=== PATIENT | male | born 1975 | race African-American/Black ===

== ENCOUNTER 2017-10-09 13:43 | Inpatient (IN) | payer OTHER ==
--- NOTE | 2017-10-09 14:48 | ED ---
General Adult HPI - General Source: patient, EMS, RN notes reviewed Mode of arrival: EMS Limitations: no limitations <Chad Stockton - Last Filed: 10/09/17 18:07> <Michael Agarwal - Last Filed: 10/09/17 18:29> - General Chief complaint: Psychiatric Symptoms Stated complaint: Mental Health Time Seen by Provider: 10/09/17 14:27 - History of Present Illness Initial comments: Patient's a 42-year-old male being brought in today for psychiatric evaluation by [place] police. Patient mitts he called police because somebody was knocking on his door. He states that he was told some looseness he was TV. Patient denies any thoughts of suicide or homicidal thoughts. Does not that he was drinking earlier today. Please to bring him here to the hospital to have psychiatric evaluation as they state is acting very paranoid sweating and states that he's been hearing voices. Patient denies any other complaints. Denies any cough congestion, chest pain, back pain, abdominal pain, numbness tingling, dysuria or hematuria, headaches, visual changes (Chad Stockton) - Related Data Home Medications Medication Instructions Recorded Confirmed No Known Home Medications [No 10/09/17 10/09/17 Known Home Medications] Allergies Allergy/AdvReac Type Severity Reaction Status Date / Time No Known Allergies Allergy Verified 10/09/17 14:14 Review of Systems ROS Other: All systems not noted in ROS Statement are negative. <Chad Stockton - Last Filed: 10/09/17 18:07> ROS Other: All systems not noted in ROS Statement are negative. <Michael Agarwal - Last Filed: 10/09/17 18:29> ROS Statement: Those systems with pertinent positive or pertinent negative responses have been documented in the HPI. Past Medical History Past Medical History: No Reported History History of Any Multi-Drug Resistant Organisms: None Reported Past Surgical History: No Surgical Hx Reported Past Psychological History: No Psychological Hx Reported Smoking Status: Current every day smoker Past Alcohol Use History: Daily Past Drug Use History: None Reported <Chad Stockton - Last Filed: 10/09/17 18:07> General Exam Limitations: no limitations <Chad Stockton - Last Filed: 10/09/17 18:07> <Michael Agarwal - Last Filed: 10/09/17 18:29> - General Exam Comments Initial Comments: General: The patient is awake and alert, in no distress, and does not appear acutely ill. Eye: Pupils are equal, round and reactive to light, extra-ocular movements are intact. No nystagmus. There is normal conjunctiva bilaterally. No signs of icterus. Ears, nose, mouth and throat: There are moist mucous membranes and no oral lesions. Neck: The neck is supple, there is no tenderness or JVD. No meningismal signs. Cardiovascular: There is a regular rate and rhythm. No murmur, rub or gallop is appreciated. Respiratory: Lungs are clear to auscultation, respirations are non-labored, breath sounds are equal. No wheezes, stridor, rales, or rhonchi. Musculoskeletal: Normal ROM, no tenderness. Strength 5/5. Sensation intact. Pulses equal bilaterally 2+. Neurological: A&O x 3. CN II-XII intact, There are no obvious motor or sensory deficits. Coordination appears grossly intact. Speech is normal. Skin: Skin is warm and dry and no rashes or lesions are noted. Psychiatric: Cooperative, appropriate mood & affect, normal judgment. (Chad Stockton) Course <Chad Stockton - Last Filed: 10/09/17 18:07> <Michael Agarwal - Last Filed: 10/09/17 18:29> Vital Signs 10/09/17 10/09/17 10/09/17 13:49 16:26 16:29 Temperature 100.5 F H 101.5 F H Pulse Rate 120 H 112 H Respiratory 18 18 Rate Blood Pressure 137/93 136/82 O2 Sat by Pulse 97 98 Oximetry - Reevaluation(s) Reevaluation #1: 10/09/17 17:33 Patient has been examined here the emergency room. Mental seeing patient at bedside. Patient denies any suicidal thoughts or plans. Patient have fever at triage 100.5. Was rechecked and increased. Patient given Tylenol here in emergency room. Drug screen is negative. Patient's chest x-ray showed no sign of pneumonia. Patient denies any cough or cold or chills. Patient's labs reviewed does show 14,000 white count. Platelets 80. No old lab values to compare. Patient culture and lactic acid pending at this time. (Chad Stockton) Medical Decision Making - Lab Data Result diagrams: 10/09/17 16:37 10/09/17 16:37 <Chad Stockton - Last Filed: 10/09/17 18:07> - Lab Data Result diagrams: 10/09/17 16:37 10/09/17 16:37 <Michael Agarwal - Last Filed: 10/09/17 18:29> - Medical Decision Making Patient reexamined at [facility] no signs of stress is resting comfortably. Patient has been seen by [facility] here in the emergency room. Patient does have fever and no source at this time. Chest x-ray negative. Patient is a 14,000 white count with a shift. Patient will be admitted to the hospital with consult infectious disease along with psych. Patient will not be started on antibiotics at this time. (Chad Stockton) Patient reevaluated by myself, Dr. Agarwal. Patient resting comfortably in bed and is cooperative at this time. Patient admits to feeling sweaty and hearing like people were running in the hallway. Patient over the door and found nobody there. Patient does admit he question whether or not he could've been hallucinating. Patient also admits to drinking alcohol. Patient states she does frequently drink alcohol. Patient is able to hold a conversation at this point. No meningismus. It is unknown the reason for fever. There is some concern regarding low platelet count. This could be related to chronic alcohol use however the setting of fever is felt santiago to hold patient for repeat testing and further evaluation. Case was discussed in detail with practitioner Mali mcdaniel, who will admit for Dr. Aponte, who admits for Dr. Chan. (Michael Agarwal) - Lab Data Lab Results 10/09/17 10/09/17 10/09/17 Range/Units 14:44 14:44 16:37 WBC 14.2 H (3.8-10.6) k/uL RBC 4.37 (4.30-5.90) m/uL Hgb 14.9 (13.0-17.5) gm/dL Hct 41.6 (39.0-53.0) % MCV 95.2 (80.0-100.0) fL MCH 34.2 (25.0-35.0) pg MCHC 35.9 (31.0-37.0) g/dL RDW 13.1 (11.5-15.5) % Plt Count 80 L (150-450) k/uL Neutrophils % 80 % Lymphocytes % 10 % Monocytes % 5 % Eosinophils % 3 % Basophils % 0 % Neutrophils # 11.4 H (1.3-7.7) k/uL Lymphocytes # 1.4 (1.0-4.8) k/uL Monocytes # 0.8 (0-1.0) k/uL Eosinophils # 0.4 (0-0.7) k/uL Basophils # 0.0 (0-0.2) k/uL Manual Slide Review Performed Basophilic Stippling Present Sodium (137-145) mmol/L Potassium (3.5-5.1) mmol/L Chloride (98-107) mmol/L Carbon Dioxide (22-30) mmol/L Anion Gap mmol/L BUN (9-20) mg/dL Creatinine (0.66-1.25) mg/dL Est GFR (CKD-EPI)AfAm (>60 ml/min/1.73 sqM) Est GFR (CKD-EPI)NonAf (>60 ml/min/1.73 sqM) Glucose (74-99) mg/dL Plasma Lactic Acid Castillo (0.7-2.0) mmol/L Calcium (8.4-10.2) mg/dL Total Bilirubin (0.2-1.3) mg/dL AST (17-59) U/L ALT (21-72) U/L Alkaline Phosphatase (38-126) U/L Total Protein (6.3-8.2) g/dL Albumin (3.5-5.0) g/dL Urine Color Yellow Urine Appearance Clear (Clear) Urine pH 5.5 (5.0-8.0) Ur Specific [place] 1.004 (1.001-1.035) Urine Protein Negative (Negative) Urine Glucose (UA) Negative (Negative) Urine Ketones Negative (Negative) Urine Blood Negative (Negative) Urine Nitrite Negative (Negative) Urine Bilirubin Negative (Negative) Urine Urobilinogen <2.0 (<2.0) mg/dL Ur Leukocyte Esterase Negative (Negative) Urine Opiates Screen Not Detected (NotDetected) Ur Oxycodone Screen Not Detected (NotDetected) Urine Methadone Screen Not Detected (NotDetected) Ur Propoxyphene Screen Not Detected (NotDetected) Ur Barbiturates Screen Not Detected (NotDetected) U Tricyclic Antidepress Not Detected (NotDetected) Ur Phencyclidine Scrn Not Detected (NotDetected) Ur Amphetamines Screen Not Detected (NotDetected) U Methamphetamines Scrn Not Detected (NotDetected) U Benzodiazepines Scrn Not Detected (NotDetected) Urine Cocaine Screen Not Detected (NotDetected) U Marijuana (THC) Screen Not Detected (NotDetected) Influenza Type A RNA (Not Detectd) Influenza Type B (PCR) (Not Detectd) 10/09/17 10/09/17 10/09/17 Range/Units 16:37 17:39 17:39 WBC (3.8-10.6) k/uL RBC (4.30-5.90) m/uL Hgb (13.0-17.5) gm/dL Hct (39.0-53.0) % MCV (80.0-100.0) fL MCH (25.0-35.0) pg MCHC (31.0-37.0) g/dL RDW (11.5-15.5) % Plt Count (150-450) k/uL Neutrophils % % Lymphocytes % % Monocytes % % Eosinophils % % Basophils % % Neutrophils # (1.3-7.7) k/uL Lymphocytes # (1.0-4.8) k/uL Monocytes # (0-1.0) k/uL Eosinophils # (0-0.7) k/uL Basophils # (0-0.2) k/uL Manual Slide Review Basophilic Stippling Sodium 136 L (137-145) mmol/L Potassium 4.0 (3.5-5.1) mmol/L Chloride 98 (98-107) mmol/L Carbon Dioxide 21 L (22-30) mmol/L Anion Gap 17 mmol/L BUN 5 L (9-20) mg/dL Creatinine 0.82 (0.66-1.25) mg/dL Est GFR (CKD-EPI)AfAm >90 (>60 ml/min/1.73 sqM) Est GFR (CKD-EPI)NonAf >90 (>60 ml/min/1.73 sqM) Glucose 97 (74-99) mg/dL Plasma Lactic Acid Castillo 1.2 (0.7-2.0) mmol/L Calcium 9.3 (8.4-10.2) mg/dL Total Bilirubin 0.8 (0.2-1.3) mg/dL AST 51 (17-59) U/L ALT 44 (21-72) U/L Alkaline Phosphatase 106 (38-126) U/L Total Protein 7.4 (6.3-8.2) g/dL Albumin 4.4 (3.5-5.0) g/dL Urine Color Urine Appearance (Clear) Urine pH (5.0-8.0) Ur Specific [place] (1.001-1.035) Urine Protein (Negative) Urine Glucose (UA) (Negative) Urine Ketones (Negative) Urine Blood (Negative) Urine Nitrite (Negative) Urine Bilirubin (Negative) Urine Urobilinogen (<2.0) mg/dL Ur Leukocyte Esterase (Negative) Urine Opiates Screen (NotDetected) Ur Oxycodone Screen (NotDetected) Urine Methadone Screen (NotDetected) Ur Propoxyphene Screen (NotDetected) Ur Barbiturates Screen (NotDetected) U Tricyclic Antidepress (NotDetected) Ur Phencyclidine Scrn (NotDetected) Ur Amphetamines Screen (NotDetected) U Methamphetamines Scrn (NotDetected) U Benzodiazepines Scrn (NotDetected) Urine Cocaine Screen (NotDetected) U Marijuana (THC) Screen (NotDetected) Influenza Type A RNA Not Detected (Not Detectd) Influenza Type B (PCR) Not Detected (Not Detectd) Disposition Is patient prescribed a controlled substance at d/c from ED?: No Time of Disposition: 18:12 <Chad Stockton - Last Filed: 10/09/17 18:07> <Michael Agarwal - Last Filed: 10/09/17 18:29> Clinical Impression: Fever, Leukocytosis, Acute psychosis Disposition: ADMITTED IP TO THIS HOSP Condition: Stable Referrals: Germaine Briggs MD [Primary Care Provider] - 1-2 days
[2017-10-09 15:01] LABS: Amphetamine Screen,Urine Not Detected (NotDetected); Barbiturate Screen,Urine Not Detected (NotDetected); Benzodiazepines Screen,Urine Not Detected (NotDetected); Cocaine Screen,Urine Not Detected (NotDetected); Methadone Screen, Urine Not Detected (NotDetected); Opiate Screen,Urine Not Detected (NotDetected); Oxycodone Screen, Urine Not Detected (NotDetected); Phencyclidine Screen,Urine Not Detected (NotDetected); Tricyclic Antidepressant,Urine Not Detected (NotDetected); Urn Cannabinoid Scrn Not Detected (NotDetected)
[2017-10-09] MEDS ORDERED: SODIUM CHLORIDE 0.9% 1,000 ML IV STA (16:27)
[2017-10-09] MEDS ORDERED: ACETAMINOPHEN TAB 500 MG TAB PO STA (16:27)
[2017-10-09 16:51] LABS: Basophils % (A) 0 %; Eosinophils # (A) 0.4 k/uL (0-0.7); Eosinophils % (A) 3 %; HCT 41.6 % (39.0-53.0); HGB 14.9 gm/dL (13.0-17.5); Lymphocytes # (A) 1.4 k/uL (1.0-4.8); Lymphocytes % (A) 10 %; MCH 34.2 pg (25.0-35.0); MCHC 35.9 g/dL (31.0-37.0); MCV 95.2 fL (80.0-100.0); Mean Platelet Volume 8.6; Monocytes # (A) 0.8 k/uL (0-1.0); Monocytes % (A) 5 %; Neutrophils # (A) 11.4 k/uL (1.3-7.7); Neutrophils % (A) 80 %; RBC 4.37 m/uL (4.30-5.90); RDW 13.1 % (11.5-15.5); WBC 14.2 k/uL (3.8-10.6)
--- NOTE | 2017-10-09 16:56 | XR ---
EXAMINATION TYPE: XR chest 1V portable DATE OF EXAM: 10/09/2017 Comparison: None Clinical History: 42-year-old male fever Findings: Lordotic positioning. The cardiomediastinal silhouette, aorta, and pulmonary vasculature are within normal limits. Lungs and pleural spaces are clear. Impression: No acute cardiopulmonary process.
[2017-10-09 17:06] LABS: ALT 44 U/L (21-72); AST 51 U/L (17-59); Albumin 4.4 g/dL (3.5-5.0); Alkaline Phosphatase 106 U/L (38-126); Anion Gap 17 mmol/L; Blood Urea Nitrogen 5 mg/dL (9-20); Calcium 9.3 mg/dL (8.4-10.2); Carbon Dioxide 21 mmol/L (22-30); Chloride 98 mmol/L (98-107); Glucose 97 mg/dL (74-99); Sodium 136 mmol/L (137-145); Total Bilirubin 0.8 mg/dL (0.2-1.3); Total Protein 7.4 g/dL (6.3-8.2)
[2017-10-09 17:07] LABS: Basophilic Stippling Present
[2017-10-09 17:10] LABS: Platelet Count 80 k/uL (150-450)
[2017-10-09 17:36] LABS: Appearance,Urine Clear (Clear); Bilirubin,Urine Negative (Negative); Blood,Urine Negative (Negative); Color,Urine Yellow; Glucose,Urine (UA) Negative (Negative); Ketones,Urine Negative (Negative); Leukocyte Esterase,Urine Negative (Negative); Nitrite,Urine Negative (Negative); PH, Urine 5.5 (5.0-8.0); Protein,Urine Negative (Negative); Specific Gravity,Urine 1.004 (1.001-1.035); Urobilinogen,Urine <2.0 mg/dL (<2.0)
[2017-10-09] MEDS ORDERED: ONDANSETRON 4 MG/2 ML VIAL IVP PRN (18:14)
[2017-10-09] MEDS ORDERED: SODIUM CHLORIDE 0.9% 1,000 ML IV ONE (18:14)
[2017-10-09] MEDS ORDERED: NALOXONE 0.4 MG/ML 1 ML VIAL IV PRN (18:14)
[2017-10-09] MEDS ORDERED: LORazepam 2 MG/ML INJ IV PRN ×3 (18:49)
[2017-10-09] MEDS: THIAMINE 100 MG TAB PO SCH (22:54)
[2017-10-10 07:30] LABS: Basophils % (A) 0 %; Eosinophils # (A) 0.2 k/uL (0-0.7); Eosinophils % (A) 3 %; HCT 40.3 % (39.0-53.0); HGB 13.7 gm/dL (13.0-17.5); Lymphocytes # (A) 1.7 k/uL (1.0-4.8); Lymphocytes % (A) 22 %; MCH 32.4 pg (25.0-35.0); MCHC 33.9 g/dL (31.0-37.0); MCV 95.6 fL (80.0-100.0); Mean Platelet Volume 8.8; Monocytes # (A) 0.8 k/uL (0-1.0); Monocytes % (A) 10 %; Neutrophils # (A) 4.9 k/uL (1.3-7.7); Neutrophils % (A) 63 %; RBC 4.22 m/uL (4.30-5.90); RDW 13.1 % (11.5-15.5); WBC 7.8 k/uL (3.8-10.6)
[2017-10-10 07:39] LABS: Platelet Count 93 k/uL (150-450)
[2017-10-10 07:45] LABS: ALT 37 U/L (21-72); AST 44 U/L (17-59); Albumin 3.7 g/dL (3.5-5.0); Alkaline Phosphatase 103 U/L (38-126); Anion Gap 9 mmol/L; Blood Urea Nitrogen 8 mg/dL (9-20); Carbon Dioxide 27 mmol/L (22-30); Chloride 102 mmol/L (98-107); Glucose 88 mg/dL (74-99); Potassium 3.9 mmol/L (3.5-5.1); Sodium 138 mmol/L (137-145); Total Protein 6.6 g/dL (6.3-8.2)
--- NOTE | 2017-10-10 10:54 | P.CONS ---
History of Present Illness - Reason for Consult Consult date: 10/10/17 fever - History of Present Illness This is a 42-year-old -[place] male who gives history that he was hearing somebody knocking on his door and when he went to the door no one was there. This happened repeatedly. He also stated that he heard a baby crying and this has been going on for 1 weeks. Patient has no history of previous hallucinations. He denies any psychiatric problems in the past. He denies taking any medications. He states he has also had some shortness of breath for a week with a cough with phlegm production. No nausea or vomiting. He has had diarrhea 3 episodes per day for the past 3 days. He states it's watery in consistency. He denies any blood in his stool. He has had decreased appetite for the past 2 weeks and has lost 10 pounds. Patient complains of some lightheadedness but has not had no syncopal episodes. Patient states that the police told him that he was sweating but he does not recall having fever or chills. Patient was brought in by [facility] for evaluation for hallucinations. He was found to have a temperature 101.5 and tachycardia of 120. His pulse ox was 97% on room air. Initial white count 14.2 and repeat 7.8. He also had low platelet count of 80 and repeat was 93. Patient denies any known history of low platelet count. His BUN was 8 and creatinine 0.8. Liver function tests were within normal limits. Urinalysis was negative for any infection. Urine drug screen was negative and influenza testing was negative. Blood culture was obtained. He had a chest x-ray that showed no acute cardio pulmonary process. Patient was [facility] floor. Antibiotics have not been started as a source of fevers not been identified. There is a consult in for psychiatry. Patient does give history that he is drinking 30 pack of beer at least 1 day per week and a fifth of alcohol 1 day a week plus he drinks more on the weekends with his friends. He denies any street drug use or marijuana use. He is currently smoking 2 packs per day of cigarettes. 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 Patient can't recall the last evening he was telling the nurses that there was a cat in the hallway. He states he feels like he has a fever again as he is getting sweaty. This morning he ate about half of his breakfast. Review of Systems Constitutional: Reports poor appetite, Reports sweats, Reports weight loss, Denies chills, Denies fever Ears, nose, mouth and throat: Denies dental pain, Denies mouth pain, Denies vertigo Cardiovascular: Reports lightheadedness, Reports shortness of breath, Denies decreased exercise tolerance, Denies dyspnea on exertion, Denies edema, Denies leg edema, Denies syncope Respiratory: Reports cough, Reports cough with sputum, Denies congestion, Denies dyspnea, Denies excessive sputum, Denies hemoptysis, Denies home oxygen, Denies wheezing Gastrointestinal: Reports diarrhea, Reports loss of appetite, Denies abdominal pain, Denies melena, Denies nausea, Denies vomiting Genitourinary: Denies dysuria, Denies urinary frequency Musculoskeletal: Denies frequent falls Integumentary: Denies pruritus, Denies rash, Denies wounds Psychiatric: Reports hallucinations, Denies suicidal ideation Past Medical History Past Medical History: No Reported History Additional Past Medical History / Comment(s): migraines History of Any Multi-Drug Resistant Organisms: None Reported Past Surgical History: No Surgical Hx Reported Additional Past Surgical History / Comment(s): pt stated never had any sx Past Anesthesia/Blood Transfusion Reactions: No Reported Reaction Smoking Status: Current every day smoker Additional Past Alcohol Use History / Comment(s): Patient is a smoker of 2 packs per day since he was 13 years old. He states he drinks 30 pack of beer one day per week and a fifth one day per week plus he drinks more on the weekends with his friends. He denies any marijuana or street drug use. 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 He lives at home with his . He does state his has a boyfriend. - Past Family History Father History Unknown: Yes Mother History Unknown: Yes Medications and Allergies Home Medications Medication Instructions Recorded Confirmed Type No Known Home Medications [No 10/09/17 10/09/17 History Known Home Medications] Allergies Allergy/AdvReac Type Severity Reaction Status Date / Time No Known Allergies Allergy Verified 10/09/17 14:14 Physical Exam Vitals: Vital Signs Temp Pulse Pulse Pulse Resp BP BP 10/10/17 07:25 98.6 F 95 20 140/83 10/09/17 22:05 98.1 F 05/15/18 21:30 18 10/09/17 20:13 98.3 F 106 H 18 159/95 10/09/17 19:55 98.3 F 106 H 18 159/95 10/09/17 19:35 101 F H 101 H 18 145/84 10/09/17 18:59 101.4 F H 99 18 155/62 10/09/17 16:29 112 H 18 136/82 10/09/17 16:26 101.5 F H 10/09/17 13:49 100.5 F H 120 H 18 137/93 Pulse Ox 10/10/17 07:25 98 10/09/17 22:05 10/09/17 21:30 10/09/17 20:13 98 10/09/17 19:55 98 10/09/17 19:35 100 10/09/17 18:59 100 10/09/17 16:29 98 10/09/17 16:26 10/09/17 13:49 97 Intake and Output 10/09/17 10/10/17 10/10/17 22:59 06:59 14:59 Intake Total 590 Balance 590 Intake: Oral 590 Other: # Voids 2 2 # Bowel Movements 1 Gen: This is a 42-year-old -[place] male. He is ambulatory in the room and appears to be stable. He is in no acute distress. HEENT: Head is atraumatic, normocephalic. Pupils equal, round. Sclerae is anicteric. Conjunctiva pink. Mucous members of the mouth are moist. Dentition is very poor order. Patient is known to have diaphoresis on his forehead. NECK: Supple. No JVD. No lymphadenopathy. No thyromegaly. LUNGS: Clear to auscultation. No wheezes or rhonchi. No intercostal retractions. HEART: Regular rate and rhythm. No murmur. ABDOMEN: Soft. Bowel sounds are present. No masses. No tenderness. EXTREMITIES: No pedal edema. No calf tenderness. Dorsalis pedis +2 bilaterally. NEUROLOGICAL: Patient is awake, alert and oriented x3. Cranial nerves 2 through 12 are grossly intact. Patient is able to answer questions appropriately and he is able to recall the hallucinations that he has he appears to understand that these are not normal or real. Patient is able to maintain good eye contact. Results Results: Laboratory Results WBC 7.8 k/uL (3.8-10.6) 10/10/17 06:52 RBC 4.22 m/uL (4.30-5.90) L 10/10/17 06:52 Hgb 13.7 gm/dL (13.0-17.5) 10/10/17 06:52 Hct 40.3 % (39.0-53.0) 10/10/17 06:52 MCV 95.6 fL (80.0-100.0) 10/10/17 06:52 MCH 32.4 pg (25.0-35.0) 10/10/17 06:52 MCHC 33.9 g/dL (31.0-37.0) 10/10/17 06:52 RDW 13.1 % (11.5-15.5) 10/10/17 06:52 Plt Count 93 k/uL (150-450) L 10/10/17 06:52 Neutrophils % 63 % 10/10/17 06:52 Lymphocytes % 22 % 10/10/17 06:52 Monocytes % 10 % 10/10/17 06:52 Eosinophils % 3 % 10/10/17 06:52 Basophils % 0 % 10/10/17 06:52 Neutrophils # 4.9 k/uL (1.3-7.7) 10/10/17 06:52 Lymphocytes # 1.7 k/uL (1.0-4.8) 10/10/17 06:52 Monocytes # 0.8 k/uL (0-1.0) 10/10/17 06:52 Eosinophils # 0.2 k/uL (0-0.7) 10/10/17 06:52 Basophils # 0.0 k/uL (0-0.2) 10/10/17 06:52 Manual Slide Review Performed 10/09/17 16:37 Basophilic Stippling Present 10/09/17 16:37 Sodium 138 mmol/L (137-145) 10/10/17 06:52 Potassium 3.9 mmol/L (3.5-5.1) 10/10/17 06:52 Chloride 102 mmol/L (98-107) 10/10/17 06:52 Carbon Dioxide 27 mmol/L (22-30) 10/10/17 06:52 Anion Gap 9 mmol/L 10/10/17 06:52 BUN 8 mg/dL (9-20) L 10/10/17 06:52 Creatinine 0.80 mg/dL (0.66-1.25) 10/10/17 06:52 Est GFR (CKD-EPI)AfAm >90 (>60 ml/min/1.73 sqM) 10/10/17 06:52 Est GFR (CKD-EPI)NonAf >90 (>60 ml/min/1.73 sqM) 10/10/17 06:52 Glucose 88 mg/dL (74-99) 10/10/17 06:52 Plasma Lactic Acid Castillo 1.2 mmol/L (0.7-2.0) 10/09/17 17:39 Calcium 9.0 mg/dL (8.4-10.2) 10/10/17 06:52 Total Bilirubin 1.0 mg/dL (0.2-1.3) 10/10/17 06:52 AST 44 U/L (17-59) 10/10/17 06:52 ALT 37 U/L (21-72) 10/10/17 06:52 Alkaline Phosphatase 103 U/L (38-126) 10/10/17 06:52 Total Protein 6.6 g/dL (6.3-8.2) 10/10/17 06:52 Albumin 3.7 g/dL (3.5-5.0) 10/10/17 06:52 Urine Color Yellow 10/09/17 14:44 Urine Appearance Clear (Clear) 10/09/17 14:44 Urine pH 5.5 (5.0-8.0) 10/09/17 14:44 Ur Specific [place] 1.004 (1.001-1.035) 10/09/17 14:44 Urine Protein Negative (Negative) 10/09/17 14:44 Urine Glucose (UA) Negative (Negative) 10/09/17 14:44 Urine Ketones Negative (Negative) 10/09/17 14:44 Urine Blood Negative (Negative) 10/09/17 14:44 Urine Nitrite Negative (Negative) 10/09/17 14:44 Urine Bilirubin Negative (Negative) 10/09/17 14:44 Urine Urobilinogen <2.0 mg/dL (<2.0) 10/09/17 14:44 Ur Leukocyte Esterase Negative (Negative) 10/09/17 14:44 Urine Opiates Screen Not Detected (NotDetected) 10/09/17 14:44 Ur Oxycodone Screen Not Detected (NotDetected) 10/09/17 14:44 Urine Methadone Screen Not Detected (NotDetected) 10/09/17 14:44 Ur Propoxyphene Screen Not Detected (NotDetected) 10/09/17 14:44 Ur Barbiturates Screen Not Detected (NotDetected) 10/09/17 14:44 U Tricyclic Antidepress Not Detected (NotDetected) 10/09/17 14:44 Ur Phencyclidine Scrn Not Detected (NotDetected) 10/09/17 14:44 Ur Amphetamines Screen Not Detected (NotDetected) 10/09/17 14:44 U Methamphetamines Scrn Not Detected (NotDetected) 10/09/17 14:44 U Benzodiazepines Scrn Not Detected (NotDetected) 10/09/17 14:44 Urine Cocaine Screen Not Detected (NotDetected) 10/09/17 14:44 U Marijuana (THC) Screen Not Detected (NotDetected) 10/09/17 14:44 Influenza Type A RNA Not Detected (Not Detectd) 10/09/17 17:39 Influenza Type B (PCR) Not Detected (Not Detectd) 10/09/17 17:39 CBC & Chem 7: 10/10/17 10:37 10/10/17 06:52 Labs: Abnormal Lab Results - Last 24 Hours (Table) 10/09/17 10/09/17 10/10/17 Range/Units 16:37 16:37 06:52 WBC 14.2 H (3.8-10.6) k/uL RBC 4.22 L (4.30-5.90) m/uL Plt Count 80 L 93 L (150-450) k/uL Neutrophils # 11.4 H (1.3-7.7) k/uL Sodium 136 L (137-145) mmol/L Carbon Dioxide 21 L (22-30) mmol/L BUN 5 L (9-20) mg/dL 10/10/17 Range/Units 06:52 WBC (3.8-10.6) k/uL RBC (4.30-5.90) m/uL Plt Count (150-450) k/uL Neutrophils # (1.3-7.7) k/uL Sodium (137-145) mmol/L Carbon Dioxide (22-30) mmol/L BUN 8 L (9-20) mg/dL Microbiology - Last 24 Hours (Table) 10/09/17 14:44 Urine Culture - Preliminary Urine,Voided Assessment and Plan Plan: This is a 42-year-old -[place] male who presented to hospital with signs of SIRS with fever, tachycardia and leukocytosis. No source of infection is noted. Pro-calcitonin and hepatitis panel have been ordered. Patient also presents with thrombocytopenia which he denies any known history. A psychiatry evaluation to be performed as patient presented with hallucinations and that was reason for his presentation. He also has alcohol abuse syndrome but does not appear to be going through withdrawals at this time. He is on CIWA protocol. Await results of pro-calcitonin for further recommendations Continue supportive care. Further recommendations as patient progresses. The above dictated assessment and findings were discussed with Dr. Majano. The impression and plan of care have been directed as dictated. Catrina Albarado nurse practitioner acting as scribe for Dr. Majano.
[2017-10-10 11:33] LABS: Mean Platelet Volume 7.9; Platelet Count 85 k/uL (150-450)
[2017-10-10 11:58] LABS: Prothrombin Time 9.9 sec (9.0-12.0)
[2017-10-10] MEDS: SODIUM CHLORIDE 0.9% 1,000 ML IV SCH ×2 (12:24→21:35)
[2017-10-10] MEDS: THIAMINE 100 MG TAB PO SCH ×2 (12:24→19:38)
--- NOTE | 2017-10-10 12:42 | P.HPIM ---
History of Present Illness Patient's a 42-year-old male being brought in today for psychiatric evaluation by [facility] [employer]. Patient mitts he called police because somebody was knocking on his door. He states that he was told some looseness he was TV. Patient basically presented with the sudden onset of auditory hallucinations. Patient did have fever leukocytosis upon admission. Patient denied any photophobia headache patient does have history of migraine occasionally have this migraine headaches. Patient denied any recent exposure to sick contacts he claims that he has upper respiratory infection and had a recent ER visit although I do not see any year note. Patient is alert oriented 3 is having significant auditory hallucinations as an have any visual or tactile hallucinations. Patient denied any photophobia local rigidity denied any back pain neck pain. Patient denied going out of [place] on where he lives recently. Patient denied any history of sexually transmitted diseases. Denied any history of herpes simplex infection in the past Denies any cough congestion , chest pain, back pain, abdominal pain, numbness tingling, dysuria or hematuria , headaches, visual changes Review of Systems REVIEW OF SYSTEMS: CONSTITUTIONAL: No fever, no malaise, no fatigue. HEENT: No recent visual problems or hearing problems. Denied any sore throat. CARDIOVASCULAR: No chest pain, orthopnea, PND, no palpitations, no syncope. PULMONARY: No shortness of breath, no cough, no hemoptysis. GASTROINTESTINAL: No diarrhea, no nausea, no vomiting, no abdominal pain. Normoactive bowel sounds. NEUROLOGICAL: No headaches, no weakness, no numbness. HEMATOLOGICAL: Denies any bleeding or petechiae. GENITOURINARY: Denies any burning micturition, frequency, or urgency. MUSCULOSKELETAL/RHEUMATOLOGICAL: Denies any joint pain, swelling, or any muscle pain. ENDOCRINE: Denies any polyuria or polydipsia. The rest of the 14-point review of systems is negative. Past Medical History Past Medical History: No Reported History Additional Past Medical History / Comment(s): migraines History of Any Multi-Drug Resistant Organisms: None Reported Past Surgical History: No Surgical Hx Reported Additional Past Surgical History / Comment(s): pt stated never had any sx Past Anesthesia/Blood Transfusion Reactions: No Reported Reaction Smoking Status: Current every day smoker - Past Family History Father History Unknown: Yes Mother History Unknown: Yes Medications and Allergies Home Medications Medication Instructions Recorded Confirmed Type No Known Home Medications [No 10/09/17 10/09/17 History Known Home Medications] Allergies Allergy/AdvReac Type Severity Reaction Status Date / Time No Known Allergies Allergy Verified 10/09/17 14:14 Physical Exam Vitals: Vital Signs Temp Pulse Pulse Pulse Resp BP BP 10/10/17 07:25 98.6 F 95 20 140/83 10/09/17 22:05 98.1 F 10/09/17 21:30 18 10/09/17 20:13 98.3 F 106 H 18 159/95 10/09/17 19:55 98.3 F 106 H 18 159/95 10/09/17 19:35 101 F H 101 H 18 145/84 10/09/17 18:59 101.4 F H 99 18 155/62 10/09/17 16:29 112 H 18 136/82 10/09/17 16:26 101.5 F H 10/09/17 13:49 100.5 F H 120 H 18 137/93 Pulse Ox 10/10/17 07:25 98 10/09/17 22:05 10/09/17 21:30 10/09/17 20:13 98 10/09/17 19:55 98 10/09/17 19:35 100 10/09/17 18:59 100 10/09/17 16:29 98 10/09/17 16:26 10/09/17 13:49 97 Intake and Output 10/09/17 10/10/17 10/10/17 22:59 06:59 14:59 Intake Total 590 Balance 590 Intake: Oral 590 Other: # Voids 2 2 # Bowel Movements 1 PHYSICAL EXAMINATION: GENERAL: The patient is alert and oriented x3, not in any acute distress. Well developed, well nourished. HEENT: Pupils are round and equally reacting to light. EOMI. No scleral icterus. No conjunctival pallor. Normocephalic, atraumatic. No pharyngeal erythema. No thyromegaly. CARDIOVASCULAR: S1 and S2 present. No murmurs, rubs, or gallops. PULMONARY: Chest is clear to auscultation, no wheezing or crackles. ABDOMEN: Soft, nontender, nondistended, normoactive bowel sounds. No palpable organomegaly. MUSCULOSKELETAL: No joint swelling or deformity. EXTREMITIES: No cyanosis, clubbing, or pedal edema. NEUROLOGICAL: Gross neurological examination did not reveal any focal deficits. No photophobia no neck rigidity no nuchal rigidity Kernig's& Brudzinski sign are negative SKIN: No rashes. Results CBC & Chem 7: 10/10/17 10:37 10/10/17 06:52 Labs: Abnormal Lab Results - Last 24 Hours (Table) 10/09/17 10/09/17 10/10/17 Range/Units 16:37 16:37 06:52 WBC 14.2 H (3.8-10.6) k/uL RBC 4.22 L (4.30-5.90) m/uL Plt Count 80 L 93 L (150-450) k/uL Neutrophils # 11.4 H (1.3-7.7) k/uL Sodium 136 L (137-145) mmol/L Carbon Dioxide 21 L (22-30) mmol/L BUN 5 L (9-20) mg/dL 10/10/17 Range/Units 06:52 WBC (3.8-10.6) k/uL RBC (4.30-5.90) m/uL Plt Count (150-450) k/uL Neutrophils # (1.3-7.7) k/uL Sodium (137-145) mmol/L Carbon Dioxide (22-30) mmol/L BUN 8 L (9-20) mg/dL Microbiology - Last 24 Hours (Table) 10/09/17 14:44 Urine Culture - Preliminary Urine,Voided Thrombosis Risk Factor Assmnt - Choose All That Apply Any of the Below Risk Factors Present?: Yes Each Factor Represents 1 point: Age 41-60 years Other Risk Factors: No Other congenital or acquired thrombophilia - If yes, enter type in comment: No Thrombosis Risk Factor Assessment Total Risk Factor Score: 1 Thrombosis Risk Factor Assessment Level: Low Risk Assessment and Plan Plan: Auditory hallucinations with fever and leukocytosis: Encephalitis is definitely a consideration LP was ordered. No other source of infection was appreciated here. Pro-calcitonin level and hepatitis panel was ordered by infectious disease. We'll obtain CSF opening pressure, CSF HSV PCR, cytology protein, microbiology, LDH. West Nile serology will be obtained as well. CSF comprehensive viral testing. -Sepsis source is unclear possibility of encephalitis -History of migraine
[2017-10-10 13:04] LABS: Hepatitis A Antibody IgM Non-Reactive (Non-Reactive); Hepatitis B Core IgM Non-Reactive (Non-Reactive)
[2017-10-10] MEDS ORDERED: RX INFO: IV CONTRAST WAS GIVEN 1 EACH MISC MISCELLANE PRN (13:06)
--- NOTE | 2017-10-10 13:39 | P.HP ---
Psychiatric H&P - . H&P Date: 10/10/17 History & Physical: Allergies Allergy/AdvReac Type Severity Reaction Status Date / Time No Known Allergies Allergy Verified 10/09/17 14:14 Vital Signs Temp 98.6 F 10/10/17 07:25 Pulse 95 10/10/17 07:25 Resp 20 10/10/17 07:25 BP 140/83 10/10/17 07:25 Pulse Ox 98 10/10/17 07:25 Intake & Output 10/09/17 10/10/17 10/10/17 18:59 06:59 18:59 Intake Total 590 Balance 590 Weight 81.647 kg Intake: Oral 590 Other: # Voids 2 # Bowel Movements 1 Laboratory Last Values WBC 7.8 k/uL (3.8-10.6) 10/10/17 06:52 RBC 4.22 m/uL (4.30-5.90) L 10/10/17 06:52 Hgb 13.7 gm/dL (13.0-17.5) 10/10/17 06:52 Hct 40.3 % (39.0-53.0) 10/10/17 06:52 MCV 95.6 fL (80.0-100.0) 10/10/17 06:52 MCH 32.4 pg (25.0-35.0) 10/10/17 06:52 MCHC 33.9 g/dL (31.0-37.0) 10/10/17 06:52 RDW 13.1 % (11.5-15.5) 10/10/17 06:52 Plt Count 85 k/uL (150-450) L 10/10/17 10:37 Neutrophils % 63 % 10/10/17 06:52 Lymphocytes % 22 % 10/10/17 06:52 Monocytes % 10 % 10/10/17 06:52 Eosinophils % 3 % 10/10/17 06:52 Basophils % 0 % 10/10/17 06:52 Neutrophils # 4.9 k/uL (1.3-7.7) 10/10/17 06:52 Lymphocytes # 1.7 k/uL (1.0-4.8) 10/10/17 06:52 Monocytes # 0.8 k/uL (0-1.0) 10/10/17 06:52 Eosinophils # 0.2 k/uL (0-0.7) 10/10/17 06:52 Basophils # 0.0 k/uL (0-0.2) 10/10/17 06:52 Manual Slide Review Performed 10/09/17 16:37 Basophilic Stippling Present 10/09/17 16:37 PT 9.9 sec (9.0-12.0) 10/10/17 10:37 INR 1.0 (<1.2) 10/10/17 10:37 Sodium 138 mmol/L (137-145) 10/10/17 06:52 Potassium 3.9 mmol/L (3.5-5.1) 10/10/17 06:52 Chloride 102 mmol/L (98-107) 10/10/17 06:52 Carbon Dioxide 27 mmol/L (22-30) 10/10/17 06:52 Anion Gap 9 mmol/L 10/10/17 06:52 BUN 8 mg/dL (9-20) L 10/10/17 06:52 Creatinine 0.80 mg/dL (0.66-1.25) 10/10/17 06:52 Est GFR (CKD-EPI)AfAm >90 (>60 ml/min/1.73 sqM) 10/10/17 06:52 Est GFR (CKD-EPI)NonAf >90 (>60 ml/min/1.73 sqM) 10/10/17 06:52 Glucose 88 mg/dL (74-99) 10/10/17 06:52 Plasma Lactic Acid Castillo 1.2 mmol/L (0.7-2.0) 10/09/17 17:39 Calcium 9.0 mg/dL (8.4-10.2) 10/10/17 06:52 Total Bilirubin 1.0 mg/dL (0.2-1.3) 10/10/17 06:52 AST 44 U/L (17-59) 10/10/17 06:52 ALT 37 U/L (21-72) 10/10/17 06:52 Alkaline Phosphatase 103 U/L (38-126) 10/10/17 06:52 Total Protein 6.6 g/dL (6.3-8.2) 10/10/17 06:52 Albumin 3.7 g/dL (3.5-5.0) 10/10/17 06:52 Urine Color Yellow 10/09/17 14:44 Urine Appearance Clear (Clear) 10/09/17 14:44 Urine pH 5.5 (5.0-8.0) 10/09/17 14:44 Ur Specific [place] 1.004 (1.001-1.035) 10/09/17 14:44 Urine Protein Negative (Negative) 10/09/17 14:44 Urine Glucose (UA) Negative (Negative) 10/09/17 14:44 Urine Ketones Negative (Negative) 10/09/17 14:44 Urine Blood Negative (Negative) 10/09/17 14:44 Urine Nitrite Negative (Negative) 10/09/17 14:44 Urine Bilirubin Negative (Negative) 10/09/17 14:44 Urine Urobilinogen <2.0 mg/dL (<2.0) 10/09/17 14:44 Ur Leukocyte Esterase Negative (Negative) 10/09/17 14:44 Urine Opiates Screen Not Detected (NotDetected) 10/09/17 14:44 Ur Oxycodone Screen Not Detected (NotDetected) 10/09/17 14:44 Urine Methadone Screen Not Detected (NotDetected) 10/09/17 14:44 Ur Propoxyphene Screen Not Detected (NotDetected) 10/09/17 14:44 Ur Barbiturates Screen Not Detected (NotDetected) 10/09/17 14:44 U Tricyclic Antidepress Not Detected (NotDetected) 10/09/17 14:44 Ur Phencyclidine Scrn Not Detected (NotDetected) 10/09/17 14:44 Ur Amphetamines Screen Not Detected (NotDetected) 10/09/17 14:44 U Methamphetamines Scrn Not Detected (NotDetected) 10/09/17 14:44 U Benzodiazepines Scrn Not Detected (NotDetected) 10/09/17 14:44 Urine Cocaine Screen Not Detected (NotDetected) 10/09/17 14:44 U Marijuana (THC) Screen Not Detected (NotDetected) 10/09/17 14:44 Influenza Type A RNA Not Detected (Not Detectd) 10/09/17 17:39 Influenza Type B (PCR) Not Detected (Not Detectd) 10/09/17 17:39 10/10/17 13:21 Patient was seen for a psych consult regarding acute psychosis. Patient was apparently petitioned and the police stating that he was hearing and seeing things. No reported behavioral problems. Patient said it started about a week ago. He has been hearing the knocks on the door, peon of playing or Meowing. He also sees cats when nothing is there. He denies having had any psychiatric issues in the past. He does not take any psychiatric medication. He said he may drink about 90 beers in a week. He denies abusing drugs. His drug screening is negative. I do not see blood alcohol level report. This is a black male who was seen lying down in his bed. He is polite and cooperative. He does not show any psychomotor agitation or retardation. He is sweating quite profusely on his face including forehead. His speech is spontaneous and goal directed. His mood is anxious and affect is increased in range. He denies suicide and homicide thoughts. He reports of visual and auditory hallucinations. But his auditory with hallucinations are only noises and sounds. Patient feels confused. He is oriented. He is able to name the current president but has difficulty naming the president before Mr. Patrick. He is able to recall 3 out of 3 items after 5 minutes. He is unable to tell me what direction [place] is from [place] or what direction [facility] is from [place]. His insight and judgment appear to be intact. 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 Psychosis because of his psychiatric condition and usually effects the insight. This person appears to have insight which is suggestive of organic causes in addition to the nature of his hallucinations. Probable organic causes include alcohol withdrawal which is unlikely, undetected substance use, possible lesions on his parietal, temporal and occipital lobes which could be tumor or encephalopathy, hypothyroidism, possible infection etc. He had his spinal tap done today and results are pending. Suggestion: Computed tomography scan of the brain with contrast to assess cerebral pathology. TSH, T3/T4 levels.
--- NOTE | 2017-10-10 14:58 | CT ---
EXAMINATION TYPE: CT brain w con DATE OF EXAM: 10/10/2017 COMPARISON: NONE HISTORY: Fever, leukocytosis and psychosis. CT DLP: 1026.6 mGycm Automated Exposure Control for Dose Reduction was Utilized. TECHNIQUE: CT scan of the head is performed with IV contrast.,CT scan of the head is performed withou t and with with IV Contrast, patient injected with 100ml mL of Isovue M300. FINDINGS: Postcontrast images show no suspicious enhancing intraparenchymal mass. Ventricles and robles lci are within normal limits in size. Some pneumocephalus is present likely from recent attempted lum bar puncture. Mild to moderate mucosal thickening bilateral ethmoid sinuses and visualized portion of both maxillary sinuses is seen. Mild mucosal thickening involving anterior aspect bilateral sphenoid sinuses is present. The globes are intact bilaterally. IMPRESSION: No suspicious enhancing intraparenchymal mass.
--- NOTE | 2017-10-10 15:02 | FL ---
EXAMINATION TYPE: FL guided lumbar puncture LP DATE OF EXAM: 10/10/2017 COMPARISON: NONE HISTORY: Hallucinations and fever, possible encephalopathy TECHNIQUE: Fluoroscopic assisted lumbar puncture. FINDINGS: Fluoroscopic guidance was provided during lumbar puncture procedure performed by myself an krys Montaño. A total of 5 minutes 30 seconds of fluoroscopic time was utilized during the procedure and one spot image was saved. Procedure was explained to patient. Benefits, alternatives, and risks were discussed. Informed consen t was obtained. Overlying skin is cleansed with Betadine. Lidocaine is used as anesthetic into the skin and deeper ti ssue. Under fluoroscopic guidance, spinal canal is accessed at L2 and L3 levels. There is poor return of CSF despite patient having symptoms of shock into lower extremities and felt satisfactory positio taylor of spinal needle. After multiple attempts approximately 10 cc of CSF fluid was obtained. Needle was withdrawn. Patient tolerated procedure well without any immediate complication. Patient was taken back to floor in stable condition. The vital signs were monitored before during and after procedure and remained st able. Pressure measurements not taken and are presumed normal with poor CSF return despite multiple attempt s and repositioning. IMPRESSION: As Above.
[2017-10-10 15:51] LABS: Appearance,CSF Blood Tinged; CSF Tube Number 4; Nucleated Cells, CSF 1 u/L (0-5); Red Blood Cell,CSF 379 u/L (0-10)
[2017-10-10 15:52] LABS: Red Blood Cell, CSF Fresh 100 %
[2017-10-10 16:05] LABS: Glucose,CSF 62 mg/dL (40-70); Total Protein,CSF 45 mg/dL (12-60)
--- NOTE | 2017-10-10 21:27 | P.CON ---
Consult Note - . Consult date: 10/10/17 Assessment/Plan:: This is a 42-year-old -[place] male who gives history that he was hearing somebody knocking on his door and when he went to the door no one was there. This happened repeatedly. He also stated that he heard a baby crying and this has been going on for 1 weeks. Patient has no history of previous hallucinations. He denies any psychiatric problems in the past. He denies taking any medications. He states he has also had some shortness of breath for a week with a cough with phlegm production. No nausea or vomiting. He has had diarrhea 3 episodes per day for the past 3 days. He states it's watery in consistency. He denies any blood in his stool. He has had decreased appetite for the past 2 weeks and has lost 10 pounds. Patient complains of some lightheadedness but has not had no syncopal episodes. Patient states that the police told him that he was sweating but he does not recall having fever or chills. Patient was brought in by [facility] for evaluation for hallucinations. He was found to have a temperature 101.5 and tachycardia of 120. His pulse ox was 97% on room air. Initial white count 14.2 and repeat 7.8. He also had low platelet count of 80 and repeat was 93. Patient denies any known history of low platelet count. His BUN was 8 and creatinine 0.8. Liver function tests were within normal limits. Urinalysis was negative for any infection. Urine drug screen was negative and influenza testing was negative. Blood culture was obtained. He had a chest x-ray that showed no acute cardio pulmonary process. Patient was admitted to the [facility] floor. Antibiotics have not been started as a source of fevers not been identified. There is a consult in for psychiatry. Patient does give history that he is drinking 30 pack of beer at least 1 day per week and a fifth of alcohol 1 day a week plus he drinks more on the weekends with his friends. He denies any street drug use or marijuana use. He is currently smoking 2 packs per day of cigarettes. 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 Patient can't recall the last evening he was telling the nurses that there was a cat in the hallway. He states he feels like he has a fever again as he is getting sweaty. This morning he ate about half of his breakfast. Please see the consult note is dictated by nurse practitioner Mrs. Catrina Albarado. As I enter the room the patient wakes up from what appears to be sleeping directly asked me if I can hear the cats. I reassured him that there are no cats. He is easily calm and is able to converse without great difficulties. He is quite aware that he is having hallucinations. He is no longer febrile. Abdomen hallucinations has clear mentation. Computed tomography scan of the brain has been performed without evidence of acute lesions. Lumbar puncture is now also been performed and results are pending. Patient did have a temperature over 101 at admission that is now resolved. Also had a transient leukocytosis up to 14.2 is now normalized at 7.8. Evaluations for meningitis and encephalitis are in progress, however with a normal pro-calcitonin level would make bacterial meningitis distinctly unlikely does not completely rule out the possibility of a viral process. Given the resolution of the patient's fever and leukocytosis and improved mentation, encephalitis also seems to be unlikely at this time. Patient does relate that his has a boyfriend and constantly workup for HIV and syphilis have been initiated also. Of note CSF comes back available at this point in time it was a difficult collection the blood-tinged CSF has a white blood cell count is rare and 79 and WBC count of 1. Glucose is normal at 62 and protein is normal at 45. Gram stain is just become available joint evidence of many red cells few white cells and no bacteria. Patient has been seen by psychiatry is being treated for metabolic abnormalities possibly related to his chronic and significant alcohol use. Is being treated per the [facility] protocol. Evaluation, assessment and plan as dictated by nurse practitioner Mrs. Catrina Albarado.
[2017-10-11] MEDS: ACETAMINOPHEN TAB 325 MG TAB PO PRN ×2 (07:11→18:03)
[2017-10-11] MEDS: SODIUM CHLORIDE 0.9% 1,000 ML IV SCH ×2 (07:19→16:39)
[2017-10-11] MEDS ORDERED: IPRATROPIUM-ALBUTEROL 3 ML NEB INHALATION PRN (08:35)
--- NOTE | 2017-10-11 09:23 | P.CN ---
Psychiatric Consult - . Consult date: 10/11/17 Consult:: 10/11/17 09:17 Patient was seen for a follow-up examination regarding his "psychosis". Today he said he has not been seeing things and only hears noises or words. He said all these things happened when he found out that his for 16 years, was having an affair with another person. Patient was told that his workups lab tests everything did not indicate any organic causes. When I told him that the acute stress like he has been going through sometimes cause the kind of problems he is having, he said he never thought of It like that with a kind of surprised smile on his face. This matter was discussed with his doctor Dr. Aponte and we agreed to try him on Risperdal 1 mg a day.
--- NOTE | 2017-10-11 11:25 | P.PN ---
Subjective 42-year-old admitted for hallucinations patient is being evaluated for encephalopathy because of leukocytosis and fever on admission although CSF and CT of the head are essentially within normal limits now CSF protein WBC and glucose are all within normal limits suspicion for encephalopathy is low. Pending West Nile virus serology. TSH is being obtained. Discussed with psychiatrist, no evidence of alcohol withdrawal, white blood cell count has come down no fevers patient is not on any antibiotics patient may need an MRI neurology will be consulted patient was started on risperidone as per recommendations of psychiatrist. Patient still have hallucinations had them last night, ordered hallucinations. Constitutional: Denied any fatigue denied any fever. Cardio vascular: denied any chest pain, palpitations Gastrointestinal denied any nausea vomiting Pulmonary: Denied any shortness of breath cough Neurologic denied any new focal deficits Objective - Vital Signs Vital signs: Vital Signs Temp 98.1 F 10/11/17 07:35 Pulse 80 10/11/17 07:35 Resp 20 10/11/17 07:35 BP 140/95 10/11/17 07:35 Pulse Ox 99 10/11/17 07:35 Intake & Output 10/10/17 10/11/17 10/11/17 18:59 06:59 18:59 Intake Total 900 Balance 900 Intake: Intake, IV Titration 900 Amount Sodium Chloride 0.9% 1, 900 000 ml @ 100 mls/hr IV . Q10H [facility] Rx#:[id number] Other: Voiding Method Toilet Toilet # Voids 2 1 # Bowel Movements 2 1 - Exam PHYSICAL EXAMINATION: GENERAL: The patient is alert and oriented x3, not in any acute distress. Well developed, well nourished. HEENT: Pupils are round and equally reacting to light. EOMI. No scleral icterus. No conjunctival pallor. Normocephalic, atraumatic. No pharyngeal erythema. No thyromegaly. CARDIOVASCULAR: S1 and S2 present. No murmurs, rubs, or gallops. PULMONARY: Chest is clear to auscultation, no wheezing or crackles. ABDOMEN: Soft, nontender, nondistended, normoactive bowel sounds. No palpable organomegaly. MUSCULOSKELETAL: No joint swelling or deformity. EXTREMITIES: No cyanosis, clubbing, or pedal edema. NEUROLOGICAL: Gross neurological examination did not reveal any focal deficits. SKIN: No rashes. - Labs CBC & Chem 7: 10/10/17 10:37 05/16/18 06:52 Labs: Abnormal Lab Results - Last 24 Hours (Table) 10/10/17 10/10/17 10/10/17 Range/Units 06:52 10:37 14:00 Plt Count 85 L (150-450) k/uL Procalcitonin 0.92 H (0.02-0.09) ng/mL CSF RBC 379 H (0-10) u/L Microbiology - Last 24 Hours (Table) 10/10/17 20:30 Stool for WBCs - Final Stool 10/10/17 14:00 CSF Gram Stain - Preliminary Cerebral Spinal Fluid CSF Culture - Preliminary 10/10/17 20:30 Stool Culture - Preliminary Stool 10/09/17 14:44 Urine Culture - Final Urine,Voided 10/09/17 17:39 Blood Culture - Preliminary Blood No Growth after 24 hours Assessment and Plan Plan: Auditory hallucinations with fever and leukocytosis: Patient has no normal pro calcitonin levels CSF is within normal limits, consult neurology as mentioned above -Systemic inflammatory response source is unclear possibility of encephalitis -Alcohol abuse without any alcohol withdrawal -Multiple psychosocial stressors please refer to psychiatry note for further details, which can precipitate his hallucinations and cause psychiatric issues -History of migraine
[2017-10-11 12:20] LABS: HIV AB P24 Non-Reactive (Non-Reactive); HIV P24 AG Non-Reactive (Non-Reactive)
[2017-10-11] MEDS: THIAMINE 100 MG TAB PO SCH ×2 (12:30→16:43)
[2017-10-11 14:08] LABS: West Nile Virus IgM Antibody 0.02 INDEX (<0.90)
[2017-10-11] MEDS: IBUPROFEN 400 MG TAB PO PRN (16:44)
[2017-10-11] MEDS ORDERED: risperiDONE 1 MG TAB PO SCH (21:00)
--- NOTE | 2017-10-11 22:03 | CONS ---
CONSULTATION DATE OF CONSULTATION: 10/11/2017. CHIEF COMPLAINT: Hallucinations. HISTORY OF PRESENT ILLNESS: Mr. Reyes is a pleasant 42-year-old, male, who is being evaluated by the Neurology service per the request of Dr. Aponte for hallucinations. The patient was brought into [facility] Emergency Room with complaints of visual and auditory hallucinations. He was evaluated by the psychiatric division who stated that the hallucinations are more likely due to organic etiology and not psychiatric reasons. At the time of my evaluation, the patient is lying in his bed and appears to be in no acute distress. He still reports seeing cats and reports hearing sounds like knocking on the door and cat sounds. A CT scan of the brain with contrast was done, which showed no intracranial abnormalities and no abnormal enhancement was seen. His comprehensive metabolic profile was normal. His TSH was normal. His procalcitonin was elevated at 0.92. His CBC showed thrombocytopenia at 85,000. The patient was also complaining of having a fever at home. He was afebrile in the emergency room. A lumbar puncture was done and CSF workup showed no evidence of any intracranial infection. He did have 379 RBCs, but these were all fresh. Viral studies were all normal including HIV, hepatitis panel, West Nile virus, and influenza virus. At the time of my evaluation, he is lying in his bed and appears to be in no acute distress. He denies any changes in his elucidation since his admission. PAST MEDICAL HISTORY: None. PAST SURGICAL HISTORY: None. SOCIAL HISTORY: He does drink alcohol. He denies any drug use. FAMILY HISTORY: Noncontributory. HOME MEDICATIONS: None. ALLERGIES: No known drug allergies. REVIEW OF SYSTEMS: CONSTITUTIONAL: Negative. EYES: Negative. ENT: Negative. CARDIOVASCULAR: Negative. RESPIRATORY: Negative. NEUROLOGICAL: Negative. GASTROINTESTINAL: Negative. GENITOURINARY: Negative. PSYCHIATRIC: As mentioned above. MUSCULOSKELETAL: Negative. ENDOCRINE: Negative. DERMATOLOGICAL: Negative. MUSCULOSKELETAL: Negative. PHYSICAL EXAM: Vital signs show a temperature of 98.1, pulse 88, respiration 20, blood pressure 140/95. GENERAL APPEARANCE: The patient is a well-developed, -[place] male, who appears to be in no acute distress. HEENT: Normocephalic, atraumatic, no facial asymmetry is seen. NECK: Supple with no masses felt. CARDIOVASCULAR: Regular rate and rhythm. ABDOMEN: Nontender, nondistended. Extremities showed no edema or clubbing. NEUROLOGICAL EXAM: The patient is alert aware and oriented x3. Speech and language are normal. Strength is full in all 4 extremities. Sensory exam was normal to light touch in all 4 extremities. No facial asymmetry is seen on cranial nerve testing. No pronator drift is seen. No seizure-like activity is noticed. IMPRESSION: 1. Visual and auditory hallucinations. 2. Altered mental status, resolved. 3. Fever, resolved. 4. Thrombocytopenia. RECOMMENDATION: The patient's neurological examination is normal. He is still having visual and auditory hallucinations, as mentioned above. I will order an MRI of the brain with and without contrast to rule out any intracranial structural abnormalities. Otherwise, I do recommend further psychiatric workup and management. Again, his neurological examination was normal. I did review with him the results of his CT scan of the brain, which was normal and he was reassured from that standpoint. I recommend further workup and management for his significant thrombocytopenia. Continue neuro checks. I will continue to follow with you. Further recommendations to follow. Thank you for allowing me to participate in the care of your patient. If you have any questions, please feel free to contact me. MMODL / IJN: [id number] /
[2017-10-12] MEDS: SODIUM CHLORIDE 0.9% 1,000 ML IV SCH ×2 (05:46→11:42)
[2017-10-12] MEDS: IBUPROFEN 400 MG TAB PO PRN (07:24)
[2017-10-12 08:12] VITALS: BP 148/98; PULSE 71; RESP 20; TEMP 98.4
--- NOTE | 2017-10-12 08:31 | P.CN ---
Psychiatric Consult - . Consult date: 10/12/17 Consult:: 10/12/17 08:24 Patient was seen for a follow-up examination. He said he is feeling better today. He said in the middle of the night he heard somebody talking and found out people were actually talking in the hallway. He said he continues to hear sounds and noises at times. He does not have any other psychiatric complaints. He reports of having some dental pain. He is cheerful and lot more relaxed today. He said his came to visit him yesterday evening and feels better about it. He still hopes to work things out with his to whom he has been for about 16 years. He also admitted that he gets stressed out at times. He is willing to seek some counseling how to handle his stress related problems. He continues to deny suicide and homicide thoughts. He reports of having migraine headaches during which time seeing black spots etc. He is not treated for it. Assessment: Acute stress disorder F 43.0 Migraine headaches. Suggestion: Patient can be discharged home when medically cleared. Consider prophylactic treatment for migraine headaches which excludes Depakote since he has thrombocytopenia. Refer him to [facility] for stress management.
[2017-10-12 08:37] LABS: HCT 36.7 % (39.0-53.0); HGB 12.5 gm/dL (13.0-17.5); MCH 34.1 pg (25.0-35.0); MCV 100.3 fL (80.0-100.0); Macrocytosis Slight; Mean Platelet Volume 7.4; RBC 3.66 m/uL (4.30-5.90); RDW 13.6 % (11.5-15.5); WBC 6.2 k/uL (3.8-10.6)
[2017-10-12 08:46] LABS: Anion Gap 9 mmol/L; Blood Urea Nitrogen 7 mg/dL (9-20); Calcium 8.6 mg/dL (8.4-10.2); Carbon Dioxide 24 mmol/L (22-30); Chloride 108 mmol/L (98-107); Glucose 80 mg/dL (74-99); Potassium 3.5 mmol/L (3.5-5.1); Sodium 141 mmol/L (137-145)
[2017-10-12 08:58] LABS: Platelet Count 165 k/uL (150-450)
--- NOTE | 2017-10-12 10:48 | P.DS ---
Providers Date of admission: 10/11/17 19:53 Attending physician: Nathan Aponte Consults: 10/09/17 18:14 Consult Physician Stat Consulting Provider: Pedro Majano Consult Reason/Comments: Fever Do you want consulting provider notified?: Yes Consult Physician Stat Consulting Provider: Ni Light Consult Reason/Comments: Acute psychosis Do you want consulting provider notified?: Yes 10/11/17 08:33 Consult Physician Routine Consulting Provider: Masoud Ramírez Consult Reason/Comments: Encephalopathy Do you want consulting provider notified?: Yes Primary care physician: Brigitte Pino [facility] Course: 42-year-old admitted for hallucinations patient is being evaluated for encephalopathy because of leukocytosis and fever on admission although CSF and CT of the head are essentially within normal limits now CSF protein WBC and glucose are all within normal limits suspicion for encephalopathy is low. Pending West Nile virus serology. TSH is being obtained. Discussed with psychiatrist, no evidence of alcohol withdrawal, white blood cell count has come down no fevers patient is not on any antibiotics patient may need an MRI neurology will be consulted patient was started on risperidone as per recommendations of psychiatrist. Patient still have hallucinations had them last night, auditory hallucinations. 10/12/2017 All the workup for organic causes of hallucinations is negative patient West Nile serology is negative CSF is essentially within normal limits. TSH is within normal limits we will obtain an MRI, if that is negative patient will be discharged home. Patient may have either schizophrenia or schizoaffective disorder which was precipitated by stress, patient will need to follow up with, and a mental health as an outpatient as recommended by the psychiatric was here and patient will be discharged on risperidone 1 mg at bedtime daily still had hallucinations last night. Patient had may have a dental abscess in the right upper maxillary area which may which may be responsible for his fever and leukocytosis and patient will be discharged on Augmentin and follow with dental surgery as an outpatient. Patient does have thrombocytopenia secondary to alcohol use, patient was asked to quit alcohol and can and thrombocytopenia can be worked up as an outpatient if it doesn't improve after cessation of alcohol. PHYSICAL EXAMINATION: GENERAL: The patient is alert and oriented x3, not in any acute distress. Well developed, well nourished. HEENT: Pupils are round and equally reacting to light. EOMI. No scleral icterus. No conjunctival pallor. Normocephalic, atraumatic. No pharyngeal erythema. No thyromegaly. CARDIOVASCULAR: S1 and S2 present. No murmurs, rubs, or gallops. PULMONARY: Chest is clear to auscultation, no wheezing or crackles. ABDOMEN: Soft, nontender, nondistended, normoactive bowel sounds. No palpable organomegaly. MUSCULOSKELETAL: No joint swelling or deformity. EXTREMITIES: No cyanosis, clubbing, or pedal edema. NEUROLOGICAL: Gross neurological examination did not reveal any focal deficits. SKIN: No rashes. Assessment and Plan Plan: Auditory hallucinations: Etiology as mentioned above -Systemic inflammatory response source is unclear possibility of encephalitis -Alcohol abuse without any alcohol withdrawal -Multiple psychosocial stressors please refer to psychiatry note for further details, which can precipitate his hallucinations and cause psychiatric issues -History of migraine -Possible dental abscess -Thrombocytopenia secondary to alcohol use as mentioned above Patient Condition at Discharge: Stable Plan - Discharge Summary Discharge Rx Participant: No New Discharge Prescriptions: New Amoxic-Pot Clav 875-125Mg [Augmentin 875-125] 1 tab PO Q12HR #14 tablet risperiDONE [RisperDAL] 1 mg PO HS #30 tab Discharge Medication List Amoxic-Pot Clav 875-125Mg [Augmentin 875-125] 1 tab PO Q12HR #14 tablet [Rx] risperiDONE [RisperDAL] 1 mg PO HS #30 tab 10/12/17 [Rx] Follow up Appointment(s)/Referral(s): Germaine Briggs MD [Primary Care Provider] - 3 Days Activity/Diet/Wound Care/Special Instructions: Patient will need to follow with, to mental health Discharge Disposition: HOME SELF-CARE
--- NOTE | 2017-10-12 12:04 | MR ---
EXAMINATION TYPE: MR brain wo/w con DATE OF EXAM: 10/12/2017 COMPARISON: NONE HISTORY: Auditory Hallucinations, AMS TECHNIQUE: Multiplanar, multisequence images of the brain and brainstem is performed without and with IV contras t, utilizing 7.5 mL intravenous Gadavist . FINDINGS: Diffusion weighted images demonstrate no evidence of a recent infarct or other diffusion ab normality. Changes of chronic sinusitis noted with nasal septal deviation. Mastoid air cells have a normal appea neilda. Prominent cisterna magna noted. White matter: There are approximately 30 areas abnormal abnormal signal within the white matter all measuring 5 mm or less. No callosal lesions. No lesions perpendicular to ventricular system. No enhancing lesions. Midline structures demonstrate normal morphology. The craniocervical junction appears within normal limits. Post contrast images demonstrate no abnormal enhancement. The dural venous sinuses appear pa tent. The visualized sinuses are clear and the globes are intact. IMPRESSION: 1. Diffuse nonspecific white matter changes can be seen with hypertension, migraine headaches or demy elinating disease or remote microvascular ischemia correlate clinically. 2. Chronic sinusitis.
[2017-10-12] MEDS: THIAMINE 100 MG TAB PO SCH (13:24)
--- NOTE | 2017-10-12 17:37 | EEG ---
ELECTROENCEPHALOGRAM REPORT DATE OF SERVICE: 10/12/2017 REASON FOR TESTING: Hallucinations. DESCRIPTION OF THE PROCEDURE: This EEG was performed using a 21-channel digital electroencephalograph, following international 10-20 system. DESCRIPTION OF THE RECORDING: From the beginning of the tracing, and with the patient's eyes closed, the background rhythm was mostly consisting of 9 Hz alpha frequency in the posterior occipital leads. No obvious asymmetry is seen. Photic stimulation was performed with a minimal driving response seen. No pathological waves were elicited. Frequent muscle and movement artifacts are seen. Hyperventilation was performed with a minimal buildup of amplitude seen. Again, no pathological waves were elicited. More muscle artifacts are seen later in the tracing. The patient remains awake throughout this tracing. No epileptiform discharges were seen. His EKG lead showed a regular rate and rhythm. INTERPRETATION: This awake EEG can be considered within normal limits. There was no asymmetry seen. No epileptiform discharges were noticed. The absence of epileptiform discharges does not rule out the diagnosis of epilepsy; therefore clinical correlation is recommended. CARLY / FORTUNATON: [id number] /
[2017-10-18 14:51] LABS: Cryptosporidium parvum Not detected (Not detected); Isospora belli Not detected (Not detected); Microsporidium Not detected (Not detected); Routine Ova and Parasites Not detected; White Cells Not detected (Not detected)
== END 2017-10-12 13:25 | disposition home or self-care (01) | DRG 880 ==
LOC: EC 13:43 → 5MS5E 18:29 → OBSVTOIN 10-11 19:53
PROVIDERS: ADMIT Internal Medicine; ATTEND Internal Medicine
PROC: 009U3ZX Drainage of Spinal Canal, Percutaneous Approach, Diagnostic (ICD-10-PCS; principal; 2017-10-10)
DX: F43.0 Acute stress reaction (principal); G04.90 Encephalitis and encephalomyelitis, unspecified; R44.0 Auditory hallucinations; D69.59 Other secondary thrombocytopenia; T51.91XA Toxic effect of unspecified alcohol, accidental (unintentional), initial encounter; K04.7 Periapical abscess without sinus; G43.909 Migraine, unspecified, not intractable, without status migrainosus; F10.10 Alcohol abuse, uncomplicated; F17.210 Nicotine dependence, cigarettes, uncomplicated; Z71.6 Tobacco abuse counseling; Z71.41 Alcohol abuse counseling and surveillance of alcoholic
CPT/HCPCS: 36415; 62270; 70460; 70553; 71045; 80048; 80053; 80074; 80306; 81003; 82075; 82945; 83605; 83615; 84145; 84157; 84443; 85025; 85027; 85049; 85610; 86780; 86788; 86789; 87040; 87045; 87046; 87070; 87086; 87177; 87205; 87207; 87209; 87252; 87324; 87390; 87496; 87498; 87502; 87529; 87798; 89050; 89055; 94640; 95819; 96360; 96361; 99285

== ENCOUNTER 2017-11-15 12:36 | Inpatient (IN) | payer MEDICAID, OTHER ==
--- NOTE | 2017-11-15 14:35 | ED ---
Psych HPI - General Chief Complaint: Psychiatric Symptoms Stated Complaint: EPS eval Time Seen by Provider: 11/15/17 12:51 Source: patient, RN notes reviewed Mode of arrival: ambulatory Limitations: no limitations - History of Present Illness Initial Comments: 42-year-old male presents emergency department for psychiatric evaluation. Patient states his been hallucinating visually and auditory. Patient states that he's had this in the past diagnosed with schizophrenia. Patient states he went to see his therapist today who advised him come emergency department. Patient states she's not suicidal or homicidal. He does feel unsafe at home because of the hallucinations. Patient denies any illicit drug use no alcohol abuse. Denies any physical complaints. - Related Data Home Medications Medication Instructions Recorded Confirmed Ibuprofen [Motrin] 800 mg PO TID 11/15/17 11/15/17 Previous Rx's Medication Instructions Recorded risperiDONE [RisperDAL] 1 mg PO HS #30 tab 10/12/17 Allergies Allergy/AdvReac Type Severity Reaction Status Date / Time No Known Allergies Allergy Verified 11/15/17 12:58 Review of Systems ROS Statement: Those systems with pertinent positive or pertinent negative responses have been documented in the HPI. ROS Other: All systems not noted in ROS Statement are negative. Past Medical History Past Medical History: No Reported History Additional Past Medical History / Comment(s): migraines History of Any Multi-Drug Resistant Organisms: None Reported Past Surgical History: No Surgical Hx Reported Additional Past Surgical History / Comment(s): pt stated never had any sx Past Anesthesia/Blood Transfusion Reactions: No Reported Reaction Past Psychological History: Schizophrenia Smoking Status: Current every day smoker Past Alcohol Use History: Occasional Past Drug Use History: None Reported - Past Family History Father History Unknown: Yes Mother History Unknown: Yes General Exam Limitations: no limitations General appearance: alert, in no apparent distress Head exam: Present: atraumatic, normocephalic, normal inspection Eye exam: Present: normal appearance, PERRL, EOMI. Absent: scleral icterus, conjunctival injection, periorbital swelling ENT exam: Present: normal exam, normal oropharynx, mucous membranes moist Neck exam: Present: normal inspection. Absent: tenderness, meningismus, lymphadenopathy Respiratory exam: Present: normal lung sounds bilaterally. Absent: respiratory distress, wheezes, rales, rhonchi, stridor Cardiovascular Exam: Present: regular rate, normal rhythm, normal heart sounds. Absent: systolic murmur, diastolic murmur, rubs, gallop, clicks GI/Abdominal exam: Present: soft, normal bowel sounds. Absent: distended, tenderness, guarding, rebound, rigid Neurological exam: Present: alert, oriented X3, CN II-XII intact Skin exam: Present: warm, dry, intact, normal color. Absent: rash Course Vital Signs 11/15/17 12:44 Temperature 98.5 F Pulse Rate 108 H Respiratory 18 Rate Blood Pressure 132/87 O2 Sat by Pulse 99 Oximetry Medical Decision Making - Lab Data Lab Results 11/15/17 Range/Units 14:05 Urine Opiates Screen Not Detected (NotDetected) Ur Oxycodone Screen Not Detected (NotDetected) Urine Methadone Screen Not Detected (NotDetected) Ur Propoxyphene Screen Not Detected (NotDetected) Ur Barbiturates Screen Not Detected (NotDetected) U Tricyclic Antidepress Not Detected (NotDetected) Ur Phencyclidine Scrn Not Detected (NotDetected) Ur Amphetamines Screen Not Detected (NotDetected) U Methamphetamines Scrn Not Detected (NotDetected) U Benzodiazepines Scrn Not Detected (NotDetected) Urine Cocaine Screen Not Detected (NotDetected) U Marijuana (THC) Screen Not Detected (NotDetected) Disposition Clinical Impression: Schizophrenia, Hallucinations Disposition: ADMITTED IP TO THIS [facility] Condition: Stable Referrals: Germaine Briggs MD [Primary Care Provider] - 1-2 days
[2017-11-15 14:42] LABS: Amphetamine Screen,Urine Not Detected (NotDetected); Benzodiazepines Screen,Urine Not Detected (NotDetected); Cocaine Screen,Urine Not Detected (NotDetected); Opiate Screen,Urine Not Detected (NotDetected); Phencyclidine Screen,Urine Not Detected (NotDetected); Urn Cannabinoid Scrn Not Detected (NotDetected)
[2017-11-15 14:43] LABS: Barbiturate Screen,Urine Not Detected (NotDetected); Methadone Screen, Urine Not Detected (NotDetected); Oxycodone Screen, Urine Not Detected (NotDetected); Tricyclic Antidepressant,Urine Not Detected (NotDetected)
[2017-11-15] MEDS ORDERED: MAG HYDROX/AL HYDROX/SIMETH 30 ML CUP PO PRN (16:04)
[2017-11-15] MEDS ORDERED: MAGNESIUM HYDROXIDE 2,400 MG/10 ML CUP PO PRN (16:04)
[2017-11-15] MEDS ORDERED: ACETAMINOPHEN TAB 325 MG TAB PO PRN (16:04)
[2017-11-15] MEDS ORDERED: IBUPROFEN 800 MG TAB PO PRN (16:07)
[2017-11-15] MEDS ORDERED: risperiDONE 1 MG TAB PO STA (16:14)
[2017-11-15] MEDS: NICOTINE 14MG/24HR PATCH TRANSDERM SCH (17:26)
--- NOTE | 2017-11-15 21:01 | CONS ---
CONSULTATION DATE OF SERVICE: 11/15/2017 REASON FOR CONSULTATION: Advice regarding alcohol and other medical issues, requested by Psychiatry. HISTORY OF PRESENT ILLNESS: This 42-year-old gentleman with a past medical history of multiple medical problems such as history of migraine, schizophrenia, was recently admitted to [facility]. Patient has elevated blood count and SIRS, and possible encephalitis was also noted. Patient also has some alcohol abuse. Patient was treated symptomatically. Patient was also given antibiotics. The patient improved significantly and went home. Subsequently patient was admitted for psychiatric evaluation. There is no history of any fever or rigors. No history of headache, loss of consciousness or seizures. The white count is not available at this time. PAST MEDICAL HISTORY: 1. History of recent encephalitis. 2. SIRS. 3. History of ETOH. 4. Migraines. 5. Schizophrenia. HOME MEDICATIONS: 1. Risperdal 1 mg at bedtime. 2. Motrin 800 mg t.i.d. ALLERGIES: NONE. FAMILY HISTORY: No history of heart disease or strokes in the family. SOCIAL HISTORY: History of smoking. History of alcohol. REVIEW OF SYSTEMS: ENT: No diminished hearing. No diminished vision. CARDIOVASCULAR SYSTEM: No angina, palpitations. RESPIRATORY SYSTEM: No cough, hemoptysis. GI: No nausea, vomiting. : No dysuria or retention. NERVOUS SYSTEM: As mentioned earlier. ALLERGY/IMMUNOLOGY: No asthma, hayfever. MUSCULOSKELETAL: As mentioned earlier. HEMATOLOGY/ONCOLOGY: No history of anemia. ENDOCRINE: No history of diabetes, hypothyroidism. CONSTITUTIONAL: As mentioned earlier. DERMATOLOGY: Negative. RHEUMATOLOGY: Negative. PSYCHIATRY: As mentioned earlier. PHYSICAL EXAMINATION: Patient is alert, oriented x3. Pulse is 83, blood pressure 124/78, respiration 16, temperature 96.7, pulse ox 99% on room air. HEENT: Conjunctivae normal. Oral mucosa moist. NECK: No jugular venous distention. No carotid bruit. No lymph node enlargement. CARDIOVASCULAR SYSTEM: S1, S2 muffled. No S3. No S4. RESPIRATORY SYSTEM: Breath sounds diminished at the bases. No rhonchi. No crackles. ABDOMEN: Soft, non-tender. No mass palpable. LEGS: No edema. No swelling. NERVOUS SYSTEM: Higher functions as mentioned earlier. Cranial nerves 2 through 12 grossly intact. Eye movements are fully noted. No nystagmus noted. No facial deviation. Moves all 4 limbs. Power is normal. No signs of cerebellar dysfunction. No sensory abnormality. Gait also normal. LYMPHATICS: No lymph node palpable in neck, axillae or groin. SKIN: No ulcer, rash, bleeding. ASSESSMENT: 1. Schizophrenia and hallucinations. 2. History of recent systemic inflammatory response syndrome as well as possible encephalitis. 3. History of ethanol abuse. 4. History of nicotine dependence. 5. History of migraine. 6. History of dental abscess. 7. History of thrombocytopenia. RECOMMENDATION AND DISCUSSION: In this 42-year-old gentleman who presented with multiple complex medical issues. I would recommend to continue current medications, continue symptomatic treatment. Smoking cessation. I would also recommend repeat labs, and I will be happy to review if there are any abnormalities. Otherwise, smoking cessation, alcohol cessation. Supplement vitamins. I also recommend close followup with the primary physician, Dr. Briggs, after discharge. We will follow the patient closely with you. Please do not hesitate to call us in case of any change in the status of the patient. MMODL / IJN: [id number] /
[2017-11-15] MEDS ORDERED: risperiDONE 1 MG TAB PO ONE (22:00)
[2017-11-16] MEDS: MINERAL OIL-WHITE PETROLATUM 120 GM JAR TOPICAL SCH ×3 (00:01→20:31)
[2017-11-16] MEDS ORDERED: risperiDONE 1 MG TAB PO ONE (09:00)
[2017-11-16] MEDS: NICOTINE 14MG/24HR PATCH TRANSDERM SCH (09:22)
[2017-11-16 10:44] LABS: Basophils % (A) 1 %; Eosinophils # (A) 0.3 k/uL (0-0.7); Eosinophils % (A) 4 %; HCT 42.3 % (39.0-53.0); HGB 14.4 gm/dL (13.0-17.5); Lymphocytes # (A) 2.2 k/uL (1.0-4.8); Lymphocytes % (A) 27 %; MCH 33.8 pg (25.0-35.0); MCV 99.5 fL (80.0-100.0); Macrocytosis Slight; Mean Platelet Volume 6.6; Monocytes # (A) 0.7 k/uL (0-1.0); Monocytes % (A) 8 %; Neutrophils # (A) 4.7 k/uL (1.3-7.7); Neutrophils % (A) 58 %; Platelet Count 208 k/uL (150-450); RBC 4.25 m/uL (4.30-5.90); RDW 14.9 % (11.5-15.5); WBC 8.2 k/uL (3.8-10.6)
[2017-11-16 10:56] LABS: ALT 29 U/L (21-72); AST 19 U/L (17-59); Alkaline Phosphatase 65 U/L (38-126); Anion Gap 7 mmol/L; Blood Urea Nitrogen 9 mg/dL (9-20); Calcium 9.5 mg/dL (8.4-10.2); Carbon Dioxide 28 mmol/L (22-30); Chloride 105 mmol/L (98-107); Cholesterol 230 mg/dL (<200); Glucose 86 mg/dL (74-99); HDL Cholesterol 43 mg/dL (40-60); LDL Cholesterol,Calculated 149 mg/dL (0-99); Potassium 4.4 mmol/L (3.5-5.1); Sodium 140 mmol/L (137-145); Total Bilirubin 0.5 mg/dL (0.2-1.3); Total Protein 6.9 g/dL (6.3-8.2); Triglycerides 191 mg/dL (<150)
[2017-11-16] MEDS: FOLIC ACID 1 MG TAB PO SCH (12:11)
[2017-11-16] MEDS: MULTIVITAMINS, THERA 1 EACH TAB PO SCH (12:11)
[2017-11-16] MEDS: THIAMINE 100 MG TAB PO SCH (12:11)
[2017-11-16] MEDS: risperiDONE 1 MG TAB PO SCH (13:38)
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
[2017-11-16 18:32] LABS: Hemoglobin A1C 5.3 % (4.0-6.0)
[2017-11-17] MEDS: risperiDONE 1 MG TAB PO SCH (09:31)
[2017-11-17] MEDS: MINERAL OIL-WHITE PETROLATUM 120 GM JAR TOPICAL SCH ×2 (09:31→20:33)
[2017-11-17] MEDS: NICOTINE 14MG/24HR PATCH TRANSDERM SCH (09:31)
[2017-11-17] MEDS: MULTIVITAMINS, THERA 1 EACH TAB PO SCH (09:31)
[2017-11-17] MEDS: FOLIC ACID 1 MG TAB PO SCH (09:31)
[2017-11-17] MEDS: THIAMINE 100 MG TAB PO SCH (09:31)
--- NOTE | 2017-11-17 10:53 | P.PN ---
Subjective Progress Note Date: 11/17/17 Principal diagnosis: Major neurocognitive disorder due to another medical condition, white matter disease, auditory and visual hallucinations I reviewed the medical record and interviewed the patient. He denied problems or concerns. He denied side effects to either Luvox oral risperidone. He reported that he feels "less depressed" and denied that he has been "seeing things" or "hearing things". Objective - Vital Signs Vital signs: Vital Signs Temp 98.6 F 11/17/17 05:49 Pulse 82 11/17/17 05:49 Resp 16 11/17/17 05:49 BP 104/71 11/17/17 05:49 Pulse Ox 99 11/15/17 16:02 - Psychiatric Psychiatric Comment(s): He presented as a tall She groomed Citizen [place] male who was pleasant on approach. He had a strong tobacco. He made eye contact and attended to the interview. He had no distinguishing features or prominent physical abnormalities. He had a blunted facial expression. He was alert and oriented to person, place and time. He showed psychomotor retardation but no abnormal movements. His gait was slow but steady. His speech was spontaneous with decreased rate, rhythm and volume. His affect was blunted and depressed. He denied suicidal ideation , wishes or homicidal ideation. He denied feeling hopeless or helpless. He did not express ideas reference, paranoid ideation or delusional thoughts. His thinking was concrete but his associations were coherent and logical. He denied current hallucinations and did not appear to be responding to internal stimuli. - Labs CBC & Chem 7: 11/16/17 10:07 11/16/17 10:07 Labs: Abnormal Lab Results - Last 24 Hours (Table) 11/16/17 11/16/17 Range/Units 10:07 10:07 RBC 4.25 L (4.30-5.90) m/uL Triglycerides 191 H (<150) mg/dL Cholesterol 230 H (<200) mg/dL LDL Cholesterol, Calc 149 H (0-99) mg/dL Assessment and Plan Assessment: He has tolerating the current psychotropic medications and may be experiencing in early positive benefit. Overall, he appears moderately mentally ill and minimally improve from admission. (1) White matter disease Current Visit: Yes Status: Acute Priority: High Code(s): R90.82 - WHITE MATTER DISEASE, UNSPECIFIED SNOMED Code(s): 51370049789763590 (2) Major neurocognitive disorder due to another medical condition with behavioral disturbance Current Visit: Yes Status: Acute Priority: High Code(s): F02.81 - DEMENTIA IN OTH DISEASES CLASSD ELSWHR W BEHAVIORAL DISTURB SNOMED Code(s): 688695013 (3) Major depressive disorder Current Visit: Yes Status: Acute Priority: Medium Code(s): F32.9 - MAJOR DEPRESSIVE DISORDER, SINGLE EPISODE, UNSPECIFIED SNOMED Code(s): 515361537 Plan: Continue psychiatric hospitalization. Safety precautions. Continue risperidone 1 mg daily for the treatment of hallucinations and paranoia and fluvoxamine 50 mg at bedtime for treatment of depressive symptoms. Repeat neurocognitive testing prior to discharge. Consult neurology. Encourage participation in therapeutic groups and activities as tolerated. Evaluate clinical status response to treatment daily basis.
[2017-11-17 17:12] LABS: Appearance,Urine Clear (Clear); Bilirubin,Urine Negative (Negative); Blood,Urine Negative (Negative); Color,Urine Colorless; Glucose,Urine (UA) Negative (Negative); Ketones,Urine Negative (Negative); Leukocyte Esterase,Urine Negative (Negative); Nitrite,Urine Negative (Negative); Protein,Urine Negative (Negative); Specific Gravity,Urine 1.003 (1.001-1.035); Urobilinogen,Urine <2.0 mg/dL (<2.0)
[2017-11-18] MEDS: risperiDONE 1 MG TAB PO SCH (08:36)
[2017-11-18] MEDS: NICOTINE 14MG/24HR PATCH TRANSDERM SCH (08:36)
[2017-11-18] MEDS: MINERAL OIL-WHITE PETROLATUM 120 GM JAR TOPICAL SCH ×2 (09:19→20:49)
--- NOTE | 2017-11-18 11:36 | P.PN ---
Subjective Progress Note Date: 11/18/17 Principal diagnosis: Major neurocognitive disorder due to another medical condition, white matter disease, auditory and visual hallucinations I reviewed the medical record and interviewed the patient. He complained that he did not sleep last night due to the severity of the auditory and visual hallucinations. He complained of "hearing people knocking ... Babies crying ... People laughing ... People whispering in my ear." He also complained of seeing images of people standing at his door or by the window holding out their arm. He stated that he "paced the hallway" most of the night. He requested an increase of risperidone back to 3 mg per day because he experienced fewer "voices and visions" at that dose. He denied side effects to either Luvox oral risperidone. He reported that he feels "less depressed" and denied having thoughts of or suicide. Objective - Vital Signs Vital signs: Vital Signs Temp 98.5 F 11/18/17 06:52 Pulse 101 H 11/18/17 06:52 Resp 18 11/18/17 06:52 BP 130/81 11/18/17 06:52 Pulse Ox 99 11/15/17 16:02 - Psychiatric Psychiatric Comment(s): He presented as a tall casually groomed -[place] male who was pleasant on approach. He made eye contact and attended to the interview. He had a blunted facial expression. He showed slight psychomotor retardation but no abnormal movements. His speech was spontaneous with decreased rate, volume and rhythm. His affect was blunted and slightly depressed. He denied suicidal ideation or wishes. He denied homicidal ideation. He denied feeling hopeless, helpless or worthless. He ruminated about the "voices" and "visions" . He did not express ideas of reference or paranoid ideation. He did not express clear delusional thoughts or beliefs. His thinking was concrete because associations were coherent and logical. He denied experiencing current auditory or visual hallucinations; he did not appear to be responding to internal stimuli. - Labs CBC & Chem 7: 11/16/17 10:07 11/16/17 10:07 Assessment and Plan Assessment: He he is reporting increasing auditory and visual hallucinations. Overall, he appears moderately mentally ill and minimally improve from admission. (1) 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 Current Visit: Yes Status: Acute Code(s): F02.80 - DEMENTIA IN OTH DISEASES CLASSD ELSWHR W/O BEHAVRL DISTURB SNOMED Code(s): 760600405 (2) Major depressive disorder Current Visit: Yes Status: Acute Priority: Medium Code(s): F32.9 - MAJOR DEPRESSIVE DISORDER, SINGLE EPISODE, UNSPECIFIED SNOMED Code(s): 310003773 (3) White matter disease Current Visit: Yes Status: Acute Priority: High Code(s): R90.82 - WHITE MATTER DISEASE, UNSPECIFIED SNOMED Code(s): 28130118423246577 Plan: Continue psychiatric hospitalization. Safety precautions. Increase risperidone 1 mg daily and 2 mg at bedtime. Continue fluvoxamine 50 mg at bedtime. Repeat neurocognitive testing prior to discharge. Neurology consult pending. Encourage participation in therapeutic groups and activities as tolerated. Evaluate clinical status response to treatment daily basis.
[2017-11-18] MEDS: THIAMINE 100 MG TAB PO SCH (12:06)
[2017-11-18] MEDS: MULTIVITAMINS, THERA 1 EACH TAB PO SCH (12:06)
[2017-11-18] MEDS: FOLIC ACID 1 MG TAB PO SCH (12:06)
--- NOTE | 2017-11-18 16:23 | P.CNNES ---
History of Present Illness Consult date: 11/18/17 Reason for Consult: Patient with cognitive decline and possible dementia. History of Present Illness: This patient is a 42-year-old left-handed -[place]ian male who was admitted to the inpatient psychiatric unit on 11/15/2017 for major neurocognitive dysfunction with auditory and visual hallucinations. Patient was admitted by Dr. Stockton who is been following him closely during this admission. There was a change in behavior apparently over 2 months and this was part of his reason for admission. He was evaluated by Dr. Stockton and does not have symptoms of a major psychotic illness at this time. He did undergo some testing in the inpatient psychiatric unit by Dr. Stockton including a Montral cognitive assessment. This testing apparently revealed impairment in multiple cognitive domains. This included visual spatial and executive functioning. He also had difficulty with naming, memory, attention, language, and abstraction. The patient was admitted to hospital about a month ago in September and underwent a MRI of the brain. This MRI was done on 10/12/2017 and revealed diffuse nonspecific white matter changes. This can be seen in multiple conditions including hypertension, migraine, demyelinating disease, and microvascular ischemia. The actual MRI films were reviewed today by myself. There were occasional white matter changes but no evidence of cortical atrophy in the temporal or frontal lobes. Brain volume appears normal. There is no evidence of vascular dementia as the degree of ischemia is not that significant. We did have the patient interviewed today and he was able to answer most questions appropriately. The patient was pleasant and was not in any way agitated or preserved. He answered all questions appropriately. We did have him undergo a MMSE paper questionnaire today and he was able to complete this and his score was 28. This appears to be very appropriate for him given his current level of function cognitively. He also underwent an EEG back in September which was completed on 10/12/2017 which was reported normal for his age. Given the findings of his MMSE in EEG and review of his MRI films the patient appears to be more likely suffering from auditory and visual hallucinations from underlying psychiatric issues. Given his young age she does not appear to have evidence of early onset dementia at this time. We will continue to follow him as needed. We would recommend to have the patient evaluated for vitamin B12 and vitamin D deficiencies as well as thyroid function. We've discussed all of these findings today in detail with the patient. He seems very pleasant and appropriate at this time in answering all his questions. He does admit to having some anxiety at times for taking testing and answering questions under stress. At this time he seems to be doing quite well. We will continue to follow his progress closely during this admission. Review of Systems Constitutional: Denies chills, Denies fever Eyes: denies blurred vision, denies pain Ears, nose, mouth and throat: Denies headache, Denies sore throat Cardiovascular: Denies chest pain, Denies shortness of breath Respiratory: Denies cough Gastrointestinal: Denies abdominal pain, Denies diarrhea, Denies nausea, Denies vomiting Musculoskeletal: Denies myalgias Integumentary: Denies pruritus, Denies rash Neurological: Reports change in mentation, Reports confusion, Reports memory loss, Denies numbness, Denies weakness Psychiatric: Denies anxiety, Denies depression Endocrine: Denies fatigue, Denies weight change Past Medical History Past Medical History: No Reported History Additional Past Medical History / Comment(s): migraines, schizophrenia History of Any Multi-Drug Resistant Organisms: None Reported Past Surgical History: No Surgical Hx Reported Additional Past Surgical History / Comment(s): pt stated never had any sx Past Anesthesia/Blood Transfusion Reactions: No Reported Reaction Smoking Status: Current every day smoker - Past Family History Father History Unknown: Yes Additional Family Medical History / Comment(s): when pt was age 6 his dad . did'nt know the cause Mother History Unknown: Yes Medications and Allergies Home Medications Medication Instructions Recorded Confirmed Type risperiDONE [RisperDAL] 1 mg PO HS #30 tab 10/12/17 11/15/17 Rx Ibuprofen [Motrin] 800 mg PO TID 11/15/17 11/15/17 History Allergies Allergy/AdvReac Type Severity Reaction Status Date / Time No Known Allergies Allergy Verified 11/15/17 12:58 Physical Examination - Vital Signs Vital Signs: Vital Signs Temp Pulse Resp BP 11/18/17 06:52 98.5 F 101 H 18 130/81 - Constitutional General appearance: average body habitus, cooperative - EENT EENT: PERRL, mucous membranes moist - Respiratory Respiratory: lungs clear, normal breath sounds - Cardiovascular Cardiovascular: regular rate, normal S1, normal S2 Extremities: no peripheral edema bilaterally - Gastrointestinal Gastrointestinal: normoactive bowel sounds - Integumentary Integumentary: normal - Neurologic Cranial nerve examination: PERRL, EOMI, VFF, V1/V2/V3 grossly intact, face symmetric, tongue midline, intact gag reflex, intact corneal reflex, normal palatal elevation Speech examination: intact Sensorimotor examination: intact Motor examination - right side: 4/5: biceps, triceps, wrist flexion, wrist extension, devulcanizer operator, hip flexors, knee extensors, dorsiflexion, toe extension (EHL) , plantarflexion Motor examination - left side: 4/5: biceps, triceps, wrist flexion, wrist extension, devulcanizer operator, hip flexors, knee extensors, dorsiflexion, toe extension (EHL) , plantarflexion Detailed sensory examination: intact Reflex and gait examination: intact Reflexes: 1+: ankle, bicep, knee, tricep - Musculoskeletal Musculoskeletal: no pain - Psychiatric Psychiatric: mood/affect appropriate, cooperative Results - Laboratory Findings CBC and BMP: 11/16/17 10:07 11/16/17 10:07 Abnormal Lab Findings: Abnormal Labs 11/16/17 11/16/17 10:07 10:07 RBC 4.25 L Triglycerides 191 H Cholesterol 230 H LDL Cholesterol, Calc 149 H Assessment and Plan (1) Major depressive disorder Current Visit: Yes Status: Acute Priority: Medium Code(s): F32.9 - MAJOR DEPRESSIVE DISORDER, SINGLE EPISODE, UNSPECIFIED SNOMED Code(s): 042387417 (2) 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 Current Visit: Yes Status: Acute Code(s): F02.80 - DEMENTIA IN OTH DISEASES CLASSD ELSWHR W/O BEHAVRL DISTURB SNOMED Code(s): 190710409 (3) Hallucinations Current Visit: Yes Status: Acute Code(s): R44.3 - HALLUCINATIONS, UNSPECIFIED SNOMED Code(s): 6096253 (4) Schizophrenia Current Visit: Yes Status: Acute Code(s): F20.9 - SCHIZOPHRENIA, UNSPECIFIED SNOMED Code(s): 04103075 (5) White matter disease Current Visit: Yes Status: Acute Priority: High Code(s): R90.82 - WHITE MATTER DISEASE, UNSPECIFIED SNOMED Code(s): 65414066814522806 Plan: This patient is a 42-year-old male who is being followed in the inpatient psychiatric unit by Dr. Stockton for treatment of neurocognitive disorder and auditory visual hallucinations. Neurology was consulted for evaluation of white matter changes on his MRI of the brain done back on 10/12/2017. The actual MRI films were reviewed today in detail. There is no evidence of any severe degree of vascular ischemia to produce a vascular dementia for this patient. Brain volume appears normal for his age. There is no evidence of frontal or temporal lobe atrophy. He underwent routine EEG on 10/12/2017 which was also normal for his age. Patient underwent a MMSE assessment today at bedside and scored 28. This patient likely needs further workup and treatment for underlying auditory and visual hallucinations. He states he is feeling better on higher dose of Risperdal. He states the higher dose seems to make him less anxious and also helps with the hallucinations. He will discuss this further with his psychiatrist Dr. Stockton. We will continue to monitor his condition closely during this admission. His overall prognosis at this time remains guarded. Time with Patient: Greater than 30
[2017-11-18] MEDS: risperiDONE 2 MG TAB PO SCH (20:49)
[2017-11-19 07:00] VITALS: RESP 16
[2017-11-19] MEDS: MINERAL OIL-WHITE PETROLATUM 120 GM JAR TOPICAL SCH ×2 (10:13→20:09)
[2017-11-19] MEDS: risperiDONE 1 MG TAB PO SCH (10:13)
[2017-11-19] MEDS: NICOTINE 14MG/24HR PATCH TRANSDERM SCH (10:13)
[2017-11-19] MEDS: FOLIC ACID 1 MG TAB PO SCH (13:03)
[2017-11-19] MEDS: THIAMINE 100 MG TAB PO SCH (13:03)
[2017-11-19] MEDS: MULTIVITAMINS, THERA 1 EACH TAB PO SCH (13:03)
--- NOTE | 2017-11-19 13:45 | P.PN ---
Subjective Progress Note Date: 11/19/17 Principal diagnosis: Major neurocognitive disorder due to another medical condition, white matter disease, auditory and visual hallucinations I reviewed the medical record, interviewed the patient and discuss his treatment and treatment plan during team meeting. Neurology consult appreciated. He reported absence of auditory and visual hallucinations last night with the increased dose of risperidone. He stated that he slept well and denied feeling sedated in the morning. He denied feeling depressed, hopeless or helpless. He denied suicidal ideation. Objective - Vital Signs Vital signs: Vital Signs Temp 98.7 F 11/19/17 06:22 Pulse 98 11/19/17 06:22 Resp 16 11/19/17 06:22 BP 114/75 11/19/17 06:22 Pulse Ox 99 11/15/17 16:02 Intake & Output 11/18/17 11/19/17 11/19/17 18:59 06:59 18:59 Weight 82.1 kg - Psychiatric Psychiatric Comment(s): He presented as a tall casually groomed after [place] male who was pleasant on approach. He made eye contact and attended to interview. He had a blunted but bright facial expression. He showed psychomotor retardation but no abnormal movements. His speech was spontaneous with decreased rate, rhythm and volume. His affect was blunted but stable and appropriate. He denied suicidal ideation or wishes. He denied homicidal ideation. He denied feeling hopeless, helpless or worthless. He didn't express ideas reference, paranoid ideation or delusional thoughts. His thinking was concrete but his associations were coherent, logical and goal directed. He did not demonstrate perseveration, neologisms or blocking. He denied experiencing current auditory or visual hallucinations and did not appear to be responding to internal stimuli. - Labs CBC & Chem 7: 11/16/17 10:07 11/16/17 10:07 Assessment and Plan Assessment: His age, history and symptom pattern consistent with a diagnosis of a schizophrenia. The reported auditory and visual hallucinations are her due to a different etiology. 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 Safety precautions. Continue risperidone 1 mg daily and 2 mg at bedtime. Continue fluvoxamine 50 mg at bedtime. Repeat neurocognitive testing prior to discharge. Encourage participation in therapeutic groups and activities as tolerated. Evaluate clinical status response to treatment daily basis. Consider discharge on 2017.
[2017-11-19] MEDS: risperiDONE 2 MG TAB PO SCH (20:08)
[2017-11-20 06:24] VITALS: BP 120/74; PULSE 70; TEMP 97.7
[2017-11-20] MEDS: NICOTINE 14MG/24HR PATCH TRANSDERM SCH (08:58)
[2017-11-20] MEDS: risperiDONE 1 MG TAB PO SCH (08:59)
[2017-11-20] MEDS: MINERAL OIL-WHITE PETROLATUM 120 GM JAR TOPICAL SCH (10:19)
[2017-11-20] MEDS: MULTIVITAMINS, THERA 1 EACH TAB PO SCH (11:45)
[2017-11-20] MEDS: FOLIC ACID 1 MG TAB PO SCH (11:46)
[2017-11-20] MEDS: THIAMINE 100 MG TAB PO SCH (11:46)
--- NOTE | 2017-11-20 12:01 | P.PN ---
Subjective Progress Note Date: 11/20/17 Principal diagnosis: Major neurocognitive disorder due to another medical condition, white matter disease, auditory and visual hallucinations I reviewed the medical record, interviewed the patient and discuss his treatment and treatment plan during team meeting. He heard "knocking" last night but denied other auditory or visual experiences. He is anxious about returning home today because he spends most of the day alone. He denied feeling depressed or having thoughts of suicide. Objective - Vital Signs Vital signs: Vital Signs Temp 97.7 F 11/20/17 06:23 Pulse 70 11/20/17 06:23 Resp 16 11/20/17 06:23 BP 120/74 11/20/17 06:23 Pulse Ox 99 11/15/17 16:02 - Psychiatric Psychiatric Comment(s): We completed the Montral Cognitive Assessment (MOCA) and the Mini-Mental State Exam (MMSE). On the MOCA his total score was 18/30; normal performance is considered greater than or equal to 26. He received one point for having less than a 12th grade education. His performance improved from admission but he continues to demonstrate impairments in visuopatial/executive functioning, attention, language, abstraction and delayed recall. He was unable to copy a cube and unable to indicate "ten past eleven" on the analog clock drawing. He made several perseverative errors on the reading less. He was unable to count backwards from 100 and unable to spell the word "world" backwards. He showed poor verbal fluency (7 words beginning with the letter "F"). He again gave concrete answers to the similarities. He recalled 1 of the 5 memory words. He showed no impairment in orientation or naming. On the MMSE his total score was 24/30; This performance places him in the bottom range normal performance. He showed no impairment in orientation, registration or language but, as in the and MOCA, he was unable to count backwards from 100 or spell the word "world" backwards. He did not recall the 3 memory words. - Labs CBC & Chem 7: 11/16/17 10:07 11/16/17 10:07 Assessment and Plan Assessment: His impairments in cognitive functioning are more apparent on the Montral Cognitive Assessment and on the Mini-Mental State Exam. The Montral Cognitive Assessment assesses a broader range of cognitive functions than the MMSE. He continues to demonstrate cognitive impairment affecting multiple domains particularly with visual spatial/executive functioning, attention, verbal fluency, abstraction and memory. His performance on the Montral Cognitive Assessment is consistent with a neurocognitive disorder. The overall improvement on his performance from admission suggests emotional component. The pattern of hallucinations is not consistent with the diagnoses of a schizophrenia. I suspect that the psychotic symptoms are related to the process responsible for his poor performance on neurocognitive testing. (1) Mild neurocognitive disorder Current Visit: Yes Status: Acute Code(s): G31.84 - MILD COGNITIVE IMPAIRMENT , SO STATED SNOMED Code(s): 345061911 (2) Major depressive disorder Current Visit: Yes Status: Acute Priority: Medium Code(s): F32.9 - MAJOR DEPRESSIVE DISORDER, SINGLE EPISODE, UNSPECIFIED SNOMED Code(s): 029996986 (3) White matter disease Current Visit: Yes Status: Acute Priority: High Code(s): R90.82 - WHITE MATTER DISEASE, UNSPECIFIED SNOMED Code(s): 45902350255024901 Plan: Discharge home today with follow-up through her [facility]. Continue risperidone 1 mg a.m. and 2 mg at bedtime and Luvox 50 mg daily.
--- NOTE | 2017-11-20 15:05 | P.DS ---
Providers Date of admission: 11/15/17 15:50 Attending physician: Pedro Stockton MD Consults: 11/15/17 16:04 Consult Physician Routine Consulting Provider: Alyse Daniels Consult Reason/Comments: follow up H & P Do you want consulting provider notified?: Yes 11/17/17 10:50 Consult Physician Routine Consulting Provider: Ludmila Barrientos Consult Reason/Comments: MRI shows white matter disease. Cognitive testing consistent with dementia Do you want consulting provider notified?: Yes Primary care physician: Brigitte Herron - Discharge Diagnosis(es) (1) Mild neurocognitive disorder Current Visit: Yes Status: Acute (2) Major depressive disorder Current Visit: Yes Status: Acute Priority: Medium (3) White matter disease Current Visit: Yes Status: Acute Priority: High Hospital Course: The patient is a 42-year-old [place] male who is no history of psychiatric unit. He presented voluntarily with complaints of auditory and visual hallucinations. I spoke with his and she noticed a distinct change in his behavior beginning about 2 months prior to admission. She stated that he is confused, restless, paranoid and experiencing "visions" and "voices". He has a history of an alcohol use and alleges he drinks a "dirty pack" of beer every 2-3 weeks and about 1 pint of benitez per week. He denied that friends or family express concerns about his alcohol use. He denied use of drugs including marijuana. His admission urine drug screen was negative for drugs of abuse. He described feeling sad, hopeless and helpless. He experiences self-reproach and feels that he is let people down. He denied suicidal ideation, plan or intent. He described many of the symptoms depression including insomnia, energy and fatigue. We admitted him to the psychiatric unit under the care of this brief writer. We provided a comprehensive biopsychosocial assessment. The commercial solar sales consultant room designer completed initial physical exam and medical history. The room designer diagnosed history of systemic inflammatory response syndrome, alcohol abuse, nicotine dependence, migraine headaches, dental abscess and thrombocytopenia. He had a MRI prior to admission and it showed white matter disease. The most significant finding on the initial assessment was a very poor performance on the Montral Cognitive Assessment. His total score was 12/30 and he demonstrated impairment in visuospatial/executive functioning, naming, attention , language, abstraction and delayed recall. We consulted neurology. The neurologist administered the Mini-Mental Status Examination and examined the patient. The neurologist also evaluated the MRI. The patient allegedly scored well on the Mini-Mental Status. We prescribed risperidone up to 20 mg per day and Luvox 50 mg a day for treatment of psychotic symptoms and depression. His mood improved and the auditory hallucinations decreased in frequency and intensity. We administered both the Montral cognitive assessment and the Mini-Mental Status Exam prior to discharge. He continues to show marked cognitive impairment on the Montral Cognitive Assessment with a an improved total score of 18/30. He continues to demonstrate impairments in visuospatial/65 functioning, attention, language, scratching and delayed recall. His performance on the Mini-Mental State Exam was much better with a score of 24/30 but he showed impairments with attention and delayed recall. Answering his age, abrupt onset of his symptoms and the pattern of his symptoms he does not have a schizophrenia and the auditory hallucinations and visual hallucinations are not not due schizophrenic illness. Considering the results of the MRI and his performance on the Montral Cognitive Assessment, he most likely has a Neurocognitive Disorder. Patient Condition at Discharge: Stable Plan - Discharge Summary Discharge Rx Participant: No New Discharge Prescriptions: New fluvoxaMINE [Luvox] 50 mg PO HS #30 tab Folic Acid 1 mg PO DAILY@1200 #30 tab Multivitamins, Thera [Multivitamin (formulary)] 1 each PO DAILY@1200 #30 tab Nicotine 14Mg/24Hr Patch [Habitrol] 1 patch TRANSDERM DAILY #7 patch risperiDONE [RisperDAL] 1 mg PO DAILY #30 tab risperiDONE [RisperDAL] 2 mg PO HS #30 tab Thiamine [Vitamin B-1] 100 mg PO DAILY@1200 #30 tab Continue Ibuprofen [Motrin] 800 mg PO TID Discontinued risperiDONE [RisperDAL] 1 mg PO HS #30 tab Discharge Medication List Ibuprofen [Motrin] 800 mg PO TID 11/15/17 [History] Folic Acid 1 mg PO DAILY@1200 #30 tab 11/20/17 [Rx] Multivitamins, Thera [Multivitamin (formulary)] 1 each PO DAILY@1200 #30 tab [Rx] Nicotine 14Mg/24Hr Patch [Habitrol] 1 patch TRANSDERM DAILY #7 patch 11/20/17 [ Rx] Thiamine [Vitamin B-1] 100 mg PO DAILY@1200 #30 tab 11/20/17 [Rx] fluvoxaMINE [Luvox] 50 mg PO HS #30 tab 11/20/17 [Rx] risperiDONE [RisperDAL] 1 mg PO DAILY #30 tab 11/20/17 [Rx] risperiDONE [RisperDAL] 2 mg PO HS #30 tab 11/20/17 [Rx] Follow up Appointment(s)/Referral(s): [facility] [Outside] - 11/26/17 1:00 pm (11-26-17 @ 1:00 with Misty Graham 12-18-17 @ 9:[address] Aguirre) Germaine Briggs MD [Primary Care Provider] - 1-2 days Patient Instructions/Handouts: How to Stop Smoking (GEN) Activity/Diet/Wound Care/Special Instructions: Keep your follow up appointments as scheduled. Continue medications as prescribed. No alcohol or street drugs. No access to guns or weapons. Crisis line if needed . Discharge Disposition: HOME SELF-CARE
== END 2017-11-20 15:27 | disposition home or self-care (01) | DRG 57 ==
LOC: EC 12:36 → 3MHU 15:50
PROVIDERS: ADMIT Psychiatry & Neurology Psychiatry; ATTEND Psychiatry & Neurology Psychiatry
DX: G31.84 Mild cognitive impairment of uncertain or unknown etiology (principal); F10.10 Alcohol abuse, uncomplicated; F17.200 Nicotine dependence, unspecified, uncomplicated; F20.9 Schizophrenia, unspecified; F32.9 Major depressive disorder, single episode, unspecified; G47.00 Insomnia, unspecified; Z79.899 Other long term (current) drug therapy; Z86.61 Personal history of infections of the central nervous system; G43.909 Migraine, unspecified, not intractable, without status migrainosus; R90.82 White matter disease, unspecified
CPT/HCPCS: 80053; 80061; 80306; 81003; 82075; 83036; 84443; 85025; 99285